=== PATIENT | female | born 1975 | race African-American/Black ===

== ENCOUNTER 2019-02-09 13:20 | Emergency (ER) | payer OTHER ==
[~2019-02-09] VITALS: Ht 160 cm; Wt 99.8 kg
[2019-02-09 13:20] VITALS: BP 172/120
[2019-02-09] MEDS ORDERED: IBUPROFEN 600 MG TABLET PO ONE ×2 (15:00→15:14)
[2019-02-09] MEDS ORDERED: ACETAMINOPHEN ES 500 MG TABLET PO ONE (15:00)
[2019-02-09] MEDS ORDERED: GUAIFENESIN/D-METHORPHAN HB 5 ML UDC PO ONE (15:00)
[2019-02-09] MEDS ORDERED: ACETAMINOPHEN ES 500 MG TABLET ONE (15:14)
[2019-02-09] MEDS ORDERED: GUAIFENESIN/D-METHORPHAN HB 5 ML UDC ONE (15:14)
--- NOTE | 2019-02-09 15:32 | NUR ---
Patient discharged to home in stable condition. Written and verbal after care instructions given. Patient verbalizes understanding of instruction.
== END 2019-02-09 15:32 | disposition home or self-care (01) ==
LOC: ER 13:22
DX: J20.9 Acute bronchitis, unspecified (principal); I10 Essential (primary) hypertension; K21.9 Gastro-esophageal reflux disease without esophagitis; Z88.6 Allergy status to analgesic agent
CPT/HCPCS: 99284; A4606

== ENCOUNTER 2019-02-17 06:37 | Emergency (ER) | payer OTHER ==
[~2019-02-17] VITALS: Ht 160 cm; Wt 99.3 kg
--- NOTE | 2019-02-17 06:49 | NUR ---
PT BIBSELF C/O ABDOMINAL PAIN X4 DAYS. ALSO C/O VOMITTING, DIARRHEA, HEMATURIA. DENIES SOB, CHEST PAIN, DYSURIA, FEVER. NOTED HYPERTENSION, MD AWARE. PT AAOX4. RESPIRATIONS EVEN AND UNLABORED. SKIN WARM AND INTACT. PLACED IN GOWN AND ON MONITOR, WILL CONTINUE TO MONITOR
--- NOTE | 2019-02-17 06:50 | NUR ---
URINE COLLECTED AND SENT TO LAB
[2019-02-17] MEDS ORDERED: ONDANSETRON HCL/PF 4 MG/2 ML VIAL IVP ONE (07:00)
[2019-02-17] MEDS ORDERED: IV NS 0.9% 1,000 ML BAG IV ONE (07:00)
[2019-02-17] MEDS ORDERED: MORPHINE SULFATE INJ 2 MG/ML DISP.SYRIN IV ONE (07:00)
--- NOTE | 2019-02-17 07:05 | NUR ---
IV INITIATED RIGHT AC 20G. LABS DRAWN FROM SITE. WELL SERVICE FLOORPERSON AT BEDSIDE FOR COLLECTION. IV INTACT AND PATENT
[2019-02-17] MEDS ORDERED: ONDANSETRON HCL/PF 4 MG/2 ML VIAL ONE ×2 (07:10→08:02)
[2019-02-17] MEDS ORDERED: MORPHINE SULFATE INJ 4 MG/ML DISP.SYRIN ONE (07:10)
[2019-02-17 07:17] LABS: BASOPHILS % (AUTO) 0.3 % (0.0-2.0); EOSINOPHILS % (AUTO) 0.6 % (0.0-6.0); HEMATOCRIT 41 % (33-45); HEMOGLOBIN 13.5 g/dL (11.5-14.8); LYMPHOCYTES # (AUTO) 0.7 /CMM (0.8-4.8); LYMPHOCYTES % (AUTO) 5.6 % (20.0-44.0); MEAN CORPUSCULAR HGB CONC 33 g/dl (31.0-36.0); MEAN CORPUSCULAR VOLUME 76 fL (82-100); MONOCYTES # (AUTO) 0.3 /CMM (0.1-1.30); MONOCYTES % (AUTO) 2.5 % (2.0-12.0); NEUTROPHILS # (AUTO) 11.8 /CMM (1.8-8.9); PLATELET COUNT (AUTO) 303 /CMM (150-450); RED BLOOD CELL COUNT(AUTO) 5.42 MIL/uL (4.0-5.2); WHITE BLOOD COUNT (AUTO) 12.9 K/uL (4.3-11.0)
[2019-02-17 07:24] LABS: CREATININE 1.1 mg/dL (0.6-1.3); POTASSIUM 3.5 mmol/L (3.5-5.1)
[2019-02-17 07:35] LABS: APPEARANCE,URINE Slightly Cloudy (CLEAR); BILIRUBIN,URINE Negative (NEGATIVE); BLOOD, URINE Large Ery/uL (NEGATIVE); KETONES,URINE Trace (NEGATIVE); LEUKOCYTE ESTERASE ,URINE Trace (NEGATIVE); NITRITE, URINE Negative (NEGATIVE); PH,URINE 6.5 (5.0-8.0); PROTEIN,URINE >=300 mg/dl (NEGATIVE); UGLUCOSE 100 MG/DL mg/dL (NEGATIVE); UROBILINOGEN,URINE 0.2 EU/dL (0.2)
[2019-02-17 07:36] LABS: ALBUMIN 3.9 g/dL (3.4-5.0); BILIRUBIN,DIRECT 0.1 mg/dL (0.0-0.2); BILIRUBIN,TOTAL 1.1 mg/dL (0.2-1.0); TOTAL PROTEIN, SERUM 8.2 g/dL (6.4-8.2)
[2019-02-17 07:36] LABS: COLOR,URINE Dark Yellow (YELLOW)
--- NOTE | 2019-02-17 07:36 | NUR ---
THERMITE WELDER AT BEDSIDE FOR XRAY.
--- NOTE | 2019-02-17 07:40 | NUR ---
REPORT RECEIVED FROM SAIDA WHITE FOR ZELDA
[2019-02-17 07:49] LABS: BACTERIA,URINE Few /HPF (None Seen)
[2019-02-17 07:55] LABS: SQUAMOUS EPITHELIAL CELL,UR Many /HPF (None Seen)
[2019-02-17 07:56] LABS: URINE AMORPHOUS URATE Few /HPF (None Seen)
[2019-02-17] MEDS ORDERED: ONDANSETRON HCL/PF - ER 4 MG/2 ML VIAL IV ONE (08:00)
[2019-02-17] MEDS ORDERED: MAG HYDROX/AL HYDROX/SIMETH 30 ML UDC PO ONE (08:00)
[2019-02-17] MEDS ORDERED: LIDOCAINE VISCOUS 2% UD 15 ML UDC MM ONE (08:00)
[2019-02-17] MEDS ORDERED: LIDOCAINE VISCOUS 2% UD 15 ML UDC ONE (08:01)
[2019-02-17] MEDS ORDERED: MAG HYDROX/AL HYDROX/SIMETH 30 ML UDC ONE (08:02)
[2019-02-17 09:55] VITALS: BP 132/81
--- NOTE | 2019-02-17 09:55 | NUR ---
IV removed. Catheter intact and site benign. Pressure and 4x4 applied to site. No bleeding noted. Patient discharged to home in stable condition. Written and verbal after care instructions given. Patient verbalizes understanding of instruction.
== END 2019-02-17 09:58 | disposition home or self-care (01) ==
LOC: ER 06:37
DX: E11.9 Type 2 diabetes mellitus without complications (principal); M54.9 Dorsalgia, unspecified; G89.29 Other chronic pain; R11.2 Nausea with vomiting, unspecified; R31.9 Hematuria, unspecified; I10 Essential (primary) hypertension; K21.9 Gastro-esophageal reflux disease without esophagitis; Z88.6 Allergy status to analgesic agent
CPT/HCPCS: 36415; 71045; 80048; 80076; 81001; 83690; 84703; 85025; 96361; 96374; 96375; 96376; 99284; J2270; J2405 ×2; J7030; 81000-TC

== ENCOUNTER 2019-06-15 18:18 | Emergency (ER) | payer OTHER ==
[~2019-06-15] VITALS: Ht 160 cm; Wt 90.7 kg
[2019-06-15 18:29] VITALS: BP 194/130
[2019-06-15 18:57] LABS: APPEARANCE,URINE Slightly Cloudy (CLEAR); BILIRUBIN,URINE Negative (NEGATIVE); BLOOD, URINE Trace-intact Ery/uL (NEGATIVE); COLOR,URINE Light yellow (YELLOW); KETONES,URINE Negative (NEGATIVE); LEUKOCYTE ESTERASE ,URINE Negative (NEGATIVE); NITRITE, URINE Negative (NEGATIVE); PROTEIN,URINE 100 mg/dl (NEGATIVE); UGLUCOSE 500 MG/DL mg/dL (NEGATIVE); UROBILINOGEN,URINE 0.2 EU/dL (0.2)
[2019-06-15 19:02] LABS: RBC,URINE 0-3 /HPF (0-2); WBC,URINE 0-2 /HPF (0-3)
[2019-06-15 19:03] LABS: BACTERIA,URINE Rare /HPF (None Seen); SQUAMOUS EPITHELIAL CELL,UR Few /HPF (None Seen)
[2019-06-15] MEDS ORDERED: KETOROLAC TROMETHAMINE INJ 60 MG/2 ML VIAL IM ONE ×2 (19:20→19:30)
--- NOTE | 2019-06-15 19:30 | NUR ---
Patient discharged to home in stable condition. Written and verbal after care instructions given. Patient verbalizes understanding of instruction.
== END 2019-06-15 19:32 | disposition home or self-care (01) ==
LOC: ER 18:20
DX: M54.5 Low back pain (principal); G89.29 Other chronic pain; B37.3 Candidiasis of vulva and vagina; I10 Essential (primary) hypertension; E11.9 Type 2 diabetes mellitus without complications; K21.9 Gastro-esophageal reflux disease without esophagitis; Z90.89 Acquired absence of other organs; Z60.2 Problems related to living alone; Z88.6 Allergy status to analgesic agent
CPT/HCPCS: 81001; 84703; 96372; 99283; J1885; 81000-TC

== ENCOUNTER 2019-07-18 17:48 | Emergency (ER) | payer OTHER, MEDICAID ==
[~2019-07-18] VITALS: Ht 160 cm; Wt 88.0 kg
--- NOTE | 2019-07-18 17:51 | NUR ---
CAME IN FOR VAGINAL BLEEDING/CRAMPS SINCE THURSDAY NIGHT. REQUESTING NORETHINDRONE 5MG C/O DIZZINESS FROM TIME OF SYMTOM ONSET, ALSO C/O URINARY FREQUENCY, FEELING ALWAYS THIRSTY, AND WEIGHT LOSS. TO ER BED 16,PATEINT EMILIE Guido NOTED, HOOKED TO MONITOR, CHANGED TO GOWN, PROVIDED W WARM BLANKET, AWAITING MD DE LA PAZ.
--- NOTE | 2019-07-18 18:03 | NUR ---
VICTOR HUGO WHITNEY AT BEDSIDE
[2019-07-18 18:27] LABS: BASOPHILS % (AUTO) 0.6 % (0.0-2.0); EOSINOPHILS % (AUTO) 1.1 % (0.0-6.0); HEMATOCRIT 42 % (33-45); HEMOGLOBIN 13.9 g/dL (11.5-14.8); LYMPHOCYTES # (AUTO) 1.8 /CMM (0.8-4.8); LYMPHOCYTES % (AUTO) 25.3 % (20.0-44.0); MEAN CORPUSCULAR HGB CONC 33 g/dl (31.0-36.0); MEAN CORPUSCULAR VOLUME 75 fL (82-100); MONOCYTES # (AUTO) 0.3 /CMM (0.1-1.30); MONOCYTES % (AUTO) 4.4 % (2.0-12.0); NEUTROPHILS % (AUTO) 68.6 % (43.0-81.0); PLATELET COUNT (AUTO) 245 /CMM (150-450); WHITE BLOOD COUNT (AUTO) 7.3 K/uL (4.3-11.0)
[2019-07-18] MEDS ORDERED: ACETAMINOPHEN ES 500 MG TABLET ONE (18:28)
[2019-07-18] MEDS: ACETAMINOPHEN 325 MG TABLET PO ONE (18:37)
[2019-07-18] MEDS: IV NS 0.9% 1,000 ML BAG IV ONE ×2 (18:37→18:43)
[2019-07-18 19:00] LABS: CALCIUM, SERUM 9.5 mg/dL (8.5-10.1); CREATININE 1.1 mg/dL (0.6-1.3); POTASSIUM 3.5 mmol/L (3.5-5.1)
[2019-07-18 19:34] LABS: BILIRUBIN,URINE Negative (NEGATIVE); BLOOD, URINE Moderate Ery/uL (NEGATIVE); COLOR,URINE Light yellow (YELLOW); KETONES,URINE Trace (NEGATIVE); LEUKOCYTE ESTERASE ,URINE Negative (NEGATIVE); NITRITE, URINE Negative (NEGATIVE); PH,URINE 5.5 (5.0-8.0); PROTEIN,URINE Negative (NEGATIVE); UGLUCOSE 500 MG/DL mg/dL (NEGATIVE); UROBILINOGEN,URINE 0.2 EU/dL (0.2)
[2019-07-18 19:35] LABS: APPEARANCE,URINE SLIGHTLY HAZY (CLEAR)
[2019-07-18 19:48] LABS: BACTERIA,URINE Few /HPF (None Seen); SQUAMOUS EPITHELIAL CELL,UR Moderate /HPF (None Seen)
[2019-07-18 19:49] LABS: WBC,URINE 0-2 /HPF (0-3)
[2019-07-18] MEDS ORDERED: POTASSIUM CHLORIDE 20 MEQ TAB.PRT.SR PO ONE (20:03)
[2019-07-18] MEDS: POTASSIUM CHLORIDE 20 MEQ TAB.PRT.SR PO ONE (20:06)
[2019-07-18] MEDS ORDERED: KETOROLAC TROMETHAMINE INJ 30 MG/ML VIAL ONE (21:12)
[2019-07-18] MEDS: KETOROLAC TROMETHAMINE INJ 30 MG/ML VIAL IV ONE (21:21)
[2019-07-18 21:34] VITALS: BP 167/89
--- NOTE | 2019-07-18 21:34 | NUR ---
Patient discharged to home in stable condition. Written and verbal after care instructions given. Patient verbalizes understanding of instruction.IV removed. Catheter intact and site benign. Pressure and 4x4 applied to site. No bleeding noted.Pt ambulatory with a steady gait
== END 2019-07-18 21:35 | disposition home or self-care (01) ==
LOC: ER 17:50
DX: E11.65 Type 2 diabetes mellitus with hyperglycemia (principal); E86.0 Dehydration; R42 Dizziness and giddiness; R35.0 Frequency of micturition; N93.8 Other specified abnormal uterine and vaginal bleeding; I10 Essential (primary) hypertension; K21.9 Gastro-esophageal reflux disease without esophagitis; G89.29 Other chronic pain; Z76.0 Encounter for issue of repeat prescription; Z90.710 Acquired absence of both cervix and uterus; Z60.2 Problems related to living alone; Z88.1 Allergy status to other antibiotic agents
CPT/HCPCS: 36415; 80048; 81001; 82010; 82962 ×3; 84702; 85025; 96361; 96374; 99283; J1885; J7030 ×2; 81000-TC

== ENCOUNTER 2019-11-07 18:43 | Emergency (ER) | payer MEDICAID, OTHER ==
[~2019-11-07] VITALS: Ht 160 cm; Wt 80.7 kg
[2019-11-07 18:51] VITALS: BP 144/100
--- NOTE | 2019-11-07 18:51 | NUR ---
PT BIB MOM C/O NECK PAIN SINCE THURSDAY, PT IS AAOX4, NOT IN RESPIRATORY DISTRESS, HOOKED TO MONITOR, KEPT RESTED AND COMFORTABLE, WILL CONTINUE TO MONITOR, AWAITING ER MD FOR EVAL.
[2019-11-07] MEDS ORDERED: IBUPROFEN 600 MG TABLET PO ONE (19:00)
--- NOTE | 2019-11-07 19:08 | NUR ---
Patient discharged to home in stable condition. Written and verbal after care instructions given. Patient verbalizes understanding of instruction.
== END 2019-11-07 19:09 | disposition home or self-care (01) ==
LOC: ER 18:45
DX: M62.830 Muscle spasm of back (principal); I10 Essential (primary) hypertension; K21.9 Gastro-esophageal reflux disease without esophagitis; E11.9 Type 2 diabetes mellitus without complications; Z98.890 Other specified postprocedural states; Z88.6 Allergy status to analgesic agent; Z60.2 Problems related to living alone

== ENCOUNTER 2019-12-08 18:33 | Emergency (ER) | payer OTHER ==
[~2019-12-08] VITALS: Ht 160 cm; Wt 79.4 kg
--- NOTE | 2019-12-08 18:46 | NUR ---
Been diagnosed w/DMsince 11/07 having Leg cramps/pain/numbness legs since. PT AWAKE, ALERT, -SOB, NAD NOTED, VSS, PENDING MD DE LA PAZ
[2019-12-08] MEDS ORDERED: oxyCODONE/APAP (5/325 MG) 1 UDTAB TABLET ONE ×2 (19:47→22:09)
[2019-12-08] MEDS ORDERED: oxyCODONE/APAP (5/325 MG) 1 UDTAB TABLET PO ONE ×2 (20:00→22:00)
[2019-12-08 20:44] LABS: BASOPHILS % (AUTO) 0.6 % (0.0-2.0); EOSINOPHILS % (AUTO) 1.3 % (0.0-6.0); HEMATOCRIT 41 % (33-45); HEMOGLOBIN 13.6 g/dL (11.5-14.8); LYMPHOCYTES # (AUTO) 1.3 /CMM (0.8-4.8); LYMPHOCYTES % (AUTO) 18.9 % (20.0-44.0); MEAN CORPUSCULAR HGB CONC 33 g/dl (31.0-36.0); MEAN CORPUSCULAR VOLUME 74 fL (82-100); MONOCYTES # (AUTO) 0.4 /CMM (0.1-1.30); MONOCYTES % (AUTO) 6.1 % (2.0-12.0); NEUTROPHILS # (AUTO) 5.2 /CMM (1.8-8.9); NEUTROPHILS % (AUTO) 73.1 % (43.0-81.0); PLATELET COUNT (AUTO) 330 /CMM (150-450); RED BLOOD CELL COUNT(AUTO) 5.55 MIL/uL (4.0-5.2); WHITE BLOOD COUNT (AUTO) 7.1 K/uL (4.3-11.0)
[2019-12-08 20:59] LABS: CALCIUM, SERUM 9.9 mg/dL (8.5-10.1); CREATININE 1.3 mg/dL (0.6-1.3); POTASSIUM 3.1 mmol/L (3.5-5.1)
[2019-12-08 21:00] VITALS: BP 139/85
[2019-12-08] MEDS ORDERED: IV NS 0.9% 1,000 ML BAG IV ONE ×2 (21:00→22:00)
--- NOTE | 2019-12-08 21:00 | NUR ---
GLUCOSE 579. ER AWARE
[2019-12-08] MEDS ORDERED: INSULIN REGULAR, HUMAN 100 UNIT/ML 10 ML VIAL ONE (21:20)
--- NOTE | 2019-12-08 21:21 | NUR ---
insulin 7u ivp given
[2019-12-08] MEDS ORDERED: INSULIN REGULAR, HUMAN 100 UNIT/ML 10 ML VIAL IV ONE ×2 (21:30→22:00)
--- NOTE | 2019-12-08 22:00 | NUR ---
INSULIN 6U IVP GIVEN
--- NOTE | 2019-12-08 22:48 | NUR ---
Patient discharged to home in stable condition. Written and verbal after care instructions given. Patient verbalizes understanding of instruction. IV removed. Catheter intact and site benign. Pressure and 4x4 applied to site. No bleeding noted.
== END 2019-12-08 22:48 | disposition home or self-care (01) ==
LOC: ER 18:34
DX: E11.40 Type 2 diabetes mellitus with diabetic neuropathy, unspecified (principal); E11.65 Type 2 diabetes mellitus with hyperglycemia; I10 Essential (primary) hypertension; K21.9 Gastro-esophageal reflux disease without esophagitis; Z98.890 Other specified postprocedural states; Z86.718 Personal history of other venous thrombosis and embolism; Z60.2 Problems related to living alone; Z88.6 Allergy status to analgesic agent
CPT/HCPCS: 36415; 80048; 82962 ×3; 85025; 96361; 96374; 96376; 99283; J1815

== ENCOUNTER 2021-09-10 05:08 | Inpatient (IN) | payer OTHER ==
[~2021-09-10] VITALS: Ht 160 cm; Wt 87.5 kg
[2021-09-10 05:57] LABS: BASOPHILS % (AUTO) 0.5 % (0.0-2.0); EOSINOPHILS % (AUTO) 1.3 % (0.0-6.0); HEMATOCRIT 35 % (33-45); HEMOGLOBIN 11.1 g/dL (11.5-14.8); LYMPHOCYTES # (AUTO) 1.5 K/uL (0.8-4.8); LYMPHOCYTES % (AUTO) 17.8 % (20.0-44.0); MEAN CORPUSCULAR HGB CONC 32 g/dl (31.0-36.0); MEAN CORPUSCULAR VOLUME 77 fL (82-100); MONOCYTES # (AUTO) 0.3 K/uL (0.1-1.30); MONOCYTES % (AUTO) 3.3 % (2.0-12.0); NEUTROPHILS # (AUTO) 6.5 K/uL (1.8-8.9); NEUTROPHILS % (AUTO) 77.1 % (43.0-81.0); PLATELET COUNT (AUTO) 298 K/uL (150-450); RED BLOOD CELL COUNT(AUTO) 4.53 MIL/uL (4.0-5.2); WHITE BLOOD COUNT (AUTO) 8.4 K/uL (4.3-11.0)
--- NOTE | 2021-09-10 06:04 | NUR ---
PATIENT CAME TO THE ER BED 7 BIBSELF C/O L CHEST PAIN SINCE 1x HOURS AGO W/ SOB. PATIENT IS USUALLY ON 2.5L HOME OXYGEN FOR PAST HX OF COVID, BUT HAS BEEN OFF HOME SUPPLEMENTAL OXYGEN FOR 1x MONTH. PAIN RADIATES FROM THE LEFT SIDE OF CHEST TO THE LOWER BACK AND RIGHT ARM. AAOx4. CONNECTED TO THE LOSS CONTROL CONSULTANT. WILL CONTINUE TO MONITOR PATIENT CLOSELY.
[2021-09-10 06:05] LABS: CREATININE 1.3 mg/dL (0.6-1.3); POTASSIUM 4.1 mmol/L (3.5-5.1)
[2021-09-10] MEDS ORDERED: KETOROLAC TROMETHAMINE 15 MG/ML VIAL ONE (06:21)
[2021-09-10] MEDS ORDERED: ONDANSETRON HCL/PF 4 MG/2 ML VIAL ONE ×2 (06:21→08:28)
[2021-09-10] MEDS ORDERED: KETOROLAC TROMETHAMINE INJ 30 MG/ML VIAL IV ONE (06:30)
[2021-09-10] MEDS ORDERED: ONDANSETRON HCL/PF - ER 4 MG/2 ML VIAL IV ONE ×2 (06:30→09:00)
[2021-09-10] MEDS ORDERED: IV NS 0.9% 2,000 ML IV ONE (06:30)
[2021-09-10] MEDS ORDERED: ASPIRIN 325 MG TABLET PO ONE (06:30)
[2021-09-10] MEDS ORDERED: ASPIRIN 325 MG TABLET ONE (06:37)
[2021-09-10] MEDS ORDERED: MORPHINE SULFATE INJ 4 MG/ML DISP.SYRIN ONE ×2 (06:41→08:43)
[2021-09-10] MEDS ORDERED: ENOXAPARIN SODIUM 80 MG/0.8 ML DISP.SYRIN SQ ONE ×2 (07:00→07:31)
[2021-09-10] MEDS ORDERED: MORPHINE SULFATE INJ 2 MG/ML DISP.SYRIN IV ONE ×2 (07:00→09:00)
--- NOTE | 2021-09-10 07:13 | NUR ---
COVID SWAB SENT TO LAB
--- NOTE | 2021-09-10 07:58 | NUR ---
PANEL ON-CALL PAGED
[2021-09-10] MEDS ORDERED: METF-440 PO (08:24)
[2021-09-10] MEDS ORDERED: PANT40TA49 PO (08:24)
[2021-09-10] MEDS ORDERED: HYDR25TA4 PO (08:24)
[2021-09-10] MEDS ORDERED: METO-357 PO (08:24)
[2021-09-10] MEDS ORDERED: MOXI3DRO13 RIGHTEYE (08:24)
[2021-09-10] MEDS ORDERED: PRED5DRO16 RIGHTEYE (08:24)
[2021-09-10] MEDS ORDERED: DIAZ2TAB3 PO (08:24)
[2021-09-10] MEDS ORDERED: ATOR10TA PO (08:24)
[2021-09-10] MEDS ORDERED: INSU100I26 SQ (08:24)
[2021-09-10] MEDS ORDERED: Magnesium 1GM/D5W 100ML PREMIX PIGGYBACK IV ONE (08:30)
[2021-09-10] MEDS ORDERED: Magnesium 1GM/D5W 100ML PREMIX 200 ML IV ONE (08:35)
[2021-09-10 08:58] LABS: ALBUMIN 3.4 g/dL (3.4-5.0); BILIRUBIN,DIRECT 0.1 mg/dL (0.0-0.2); BILIRUBIN,TOTAL 0.4 mg/dL (0.2-1.0); TOTAL PROTEIN, SERUM 6.6 g/dL (6.4-8.2)
[2021-09-10] MEDS ORDERED: ONDANSETRON HCL/PF 4 MG/2 ML VIAL IV ONE (09:00)
--- NOTE | 2021-09-10 11:06 | NUR ---
GOING TO 315.2
--- NOTE | 2021-09-10 11:20 | NUR ---
report given to Mariann WHITE for kaiden.
--- NOTE | 2021-09-10 11:57 | NUR ---
wheeled patient via gurney accompanied by RN and emt in no distress. RN assigned to patient at bedside to assume care.
[2021-09-10 12:00] VITALS: BP 139/100
[2021-09-10] MEDS ORDERED: LORAZEPAM 1 MG TABLET PO PRN (12:00)
[2021-09-10] MEDS ORDERED: MAGNESIUM HYDROXIDE 30 ML UDC PO PRN (12:00)
[2021-09-10] MEDS ORDERED: Z GUARD REMEDY 2 OZ OINT TP PRN (12:00)
[2021-09-10] MEDS ORDERED: DEXTROSE 50%-WATER 50 ML DISP.SYRIN IV PRN (12:00)
[2021-09-10] MEDS ORDERED: TEMAZEPAM 15 MG CAPSULE PO PRN (12:00)
[2021-09-10] MEDS ORDERED: MAG HYDROX/AL HYDROX/SIMETH 30 ML UDC PO PRN (12:00)
[2021-09-10] MEDS ORDERED: ACETAMINOPHEN 325 MG TABLET PO PRN (12:00)
--- NOTE | 2021-09-10 12:10 | NUR ---
VOCATIONAL PSYCHOLOGIST NOTE ADMITTED PATIENT FROM ER VIA GURNEY ACCOMPANIED BY 2 NURSES. PATIENT ABLE TO TRANSFER TO BED WITH NO DIFFICULTY. PATIENT IS AMBULATORY WITH STEADY GAIT BUT INSTRUCTED TO STAY ON THE BED UNTIL FURTHER ORDERS. PATIENT IS ALERT AND ORIENTED X 4. PATIENT ON OXYGEN AT 2LPM VIAN NASAL CANULA FOR COMFORT WITH EQUAL AND UNLABORED BREATHING. PATIENT WITH IV ACCESS ON THE RIGHT AC G 20, PATENT AND INTACT. COMFORT MEASURES PROVIDED. COMPLAINED OF SOME DISCOMFORT ON THE EPIGASTRIC AREA. COMFORT MEASURES PROVIDED. PROVIDED WITH CALM AND QUIET ENVIRONMENT. SAFETY MEASURES ENSURED WITH BED ON LOWEST AND LOCKED POSITION. CALL LIGHT WITHIN REACH AT ALL TIMES. ENCOURAGED TO DO DEEP BREATHIGN EXERCISES. NOT IN DISTRESS. WILL CONTINUE TO MONITOR PATIENT.
[2021-09-10] MEDS: ONDANSETRON HCL/PF 4 MG/2 ML VIAL IVP PRN ×2 (12:26→21:16)
[2021-09-10] MEDS: MORPHINE SULFATE INJ 2 MG/ML DISP.SYRIN IV PRN ×3 (12:36→22:52)
[2021-09-10] MEDS: CIPROFLOXACIN HCL 0.3% 5 ML BOTTLE RIGHTEYE SCH ×2 (13:00→18:47)
[2021-09-10] MEDS: prednisoLONE ACET 1% OPHT DROP 5 ML BOTTLE RIGHTEYE SCH ×3 (13:00→20:53)
[2021-09-10] MEDS: BLOOD SUGAR DIAGNOSTIC 1 EACH STRIP IN SCH ×3 (14:00→22:15)
--- NOTE | 2021-09-10 14:39 | NUR ---
IRON POURER NOTE PATIENT SEEN BY DR. CURRY WITH MD ORDER FOR NM HIDA SCAN AND CTCA TOMORROW. PATIENT VERBALIZED UNDERSTANDING. CONSENT SIGNED AND ATTACHED TO CHART. WILL KEEP PATIENT ON NPO FOR HIDA SCAN TODAY. WILL CONTINUE TO MONITOR PATIENT.
[2021-09-10 16:00] VITALS: BP 139/81
--- NOTE | 2021-09-10 16:35 | NUR ---
EXTRACTOR OPERATOR HELPER NOTE PATIENT PICKED UP FOR HIDA SCAN VIA WHEELCHAIR. IN STABLE CONDITION.
[2021-09-10] MEDS ORDERED: ATORVASTATIN 10 MG TABLET PO SCH (18:00)
--- NOTE | 2021-09-10 18:30 | NUR ---
OIL BURNER INSTALLER NOTE PATIENT BACK FROM HIDA SCAN IN STABLE CONDITION. REFUSED BLOOD SUGAR CHECK SHE IS HUNGRY. DUE MEDS GIVEN. PATIENT ALSO SAID SHE HAVE PAIN ON EPIGASTRIC AREA AND ASKED FOR PAIN MEDICATION. WILL CONTINUE TO MONITOR PATIENT.
--- NOTE | 2021-09-10 19:00 | NUR ---
TIRE CLASSIFIER NOTE PATIENT IS ALERT AND ORIENTED X 4. PATIENT ON OXYGEN AT 2LPM VIA NASAL CANULA FOR COMFORT WITH EQUAL AND UNLABORED BREATHING. PATIENT WITH IV ACCESS ON THE RIGHT AC G 20, PATENT AND INTACT. COMFORT MEASURES PROVIDED. COMPLAINED OF SOME DISCOMFORT ON THE EPIGASTRIC AREA, MORPHINE GIVEN INDICATED. COMFORT MEASURES PROVIDED. PROVIDED WITH CALM AND QUIET ENVIRONMENT. HIDA SCAN DONE AND WILL WAIT FOR RESULT. STILL FOR CTA TOMORROW ORDERED. IN STABLE CONDITION. SAFETY MEASURES ENSURED WITH BED ON LOWEST AND LOCKED POSITION. CALL LIGHT WITHIN REACH AT ALL TIMES. ENCOURAGED TO DO DEEP BREATHING EXERCISES. NOT IN DISTRESS. WILL ENDORSE PATIENT FOR CONTINUITY OF CARE.
--- NOTE | 2021-09-10 19:20 | NUR ---
TELE/RN OPENING NOTE RECEIVED PATIENT RESTING IN BED. AWAKE, ALERT AND ORIENTED X 4. ABLE TO MAKE NEEDS KNOWN. DENIES PAIN AT THIS TIME. CONTINUES ON ROOM AIR WITH NO S/SX OF RESPIRATORY DISTRESS NOTED. IV ACCESS TO RIGHT AC #20G INTACT, PATENT AND SALINE LOCKED. CONTINUES ON TELE MONITOR WITH CURRENT READING SR HR 95. CALL LIGHT WITHIN REACH. ASPIRATION, FALL AND SAFETY PRECAUTIONS MAINTAINED. WILL CONTINUE TO MONITOR.
[2021-09-10] MEDS: ENOXAPARIN SODIUM 80 MG/0.8 ML DISP.SYRIN SQ SCH (20:54)
[2021-09-10 20:58] VITALS: BP 133/94
[2021-09-10] MEDS: HYDROCODONE/APAP 5/325MG TABLET PO PRN (21:15)
[2021-09-10] MEDS: INSULIN REGULAR, HUMAN 100 UNIT/ML 3 ML VIAL SQ PRN (22:36)
[2021-09-10] MEDS: GUAIFENESIN/CODEINE 10 ML UDC PO PRN (22:52)
[2021-09-11] VITALS: BP 126/89
[2021-09-11] MEDS: MORPHINE SULFATE INJ 2 MG/ML DISP.SYRIN IV PRN ×5 (02:54→19:39)
[2021-09-11] MEDS: ONDANSETRON HCL/PF 4 MG/2 ML VIAL IVP PRN ×3 (04:28→20:07)
[2021-09-11 06:25] LABS: BASOPHILS % (AUTO) 0.6 % (0.0-2.0); EOSINOPHILS % (AUTO) 0.8 % (0.0-6.0); HEMATOCRIT 32 % (33-45); HEMOGLOBIN 10.4 g/dL (11.5-14.8); LYMPHOCYTES # (AUTO) 2.4 K/uL (0.8-4.8); LYMPHOCYTES % (AUTO) 30.6 % (20.0-44.0); MEAN CORPUSCULAR HGB CONC 33 g/dl (31.0-36.0); MEAN CORPUSCULAR VOLUME 75 fL (82-100); MONOCYTES # (AUTO) 0.4 K/uL (0.1-1.30); MONOCYTES % (AUTO) 5.3 % (2.0-12.0); NEUTROPHILS % (AUTO) 62.7 % (43.0-81.0); PLATELET COUNT (AUTO) 247 K/uL (150-450); RED BLOOD CELL COUNT(AUTO) 4.26 MIL/uL (4.0-5.2)
--- NOTE | 2021-09-11 06:35 | NUR ---
TELE/RN CLOSING NOTE PATIENT CURRENTLY SLEEPING IN BED. ALERT AND ORIENTED X 4. ABLE TO MAKE NEEDS KNOWN. DENIES PAIN AT THIS TIME. CONTINUES ON ROOM AIR WITH NO S/SX OF RESPIRATORY DISTRESS NOTED. IV ACCESS TO RIGHT AC #20G INTACT, PATENT AND SALINE LOCKED. CONTINUES ON NPO STATUS FOR CTCA THIS AM. CONSENT IN CHART. PATIENT IS AMBULATORY WITH STEADY GAIT. CALL LIGHT WITHIN REACH. ASPIRATION, FALL AND SAFETY PRECAUTIONS MAINTAINED. WILL ENDORSE PLAN OF CARE TO ONCOMING SHIFT. Addendum: 09/11/21 at 0648 by VANE LI RN CONTINUES ON TELE MONITOR WITH CURRENT READING SR HR 100.
[2021-09-11] MEDS: BLOOD SUGAR DIAGNOSTIC 1 EACH STRIP IN SCH ×4 (06:52→22:07)
--- NOTE | 2021-09-11 07:01 | NUR ---
TELE/RN NOTE BLOOD GLUCOSE LEVEL THIS AM IS 157. HOLDING INSULIN SS D/T NPO STATUS FOR PROCEDURE TODAY.
[2021-09-11 07:14] LABS: THYROID STIMULATING HORMONE 10.123 uIU/mL (0.358-3.74)
--- NOTE | 2021-09-11 07:30 | NUR ---
tele/rn opening notes received patient awake alert and oriented x4. patient is on room air. patient in no apparent respiratory distress noted. tele monitor sinus tachy 111 bpm. no complained of pain at this time. will continue to monitor.
[2021-09-11 08:00] VITALS: BP 128/87
[2021-09-11 08:23] LABS: ALBUMIN 3.6 g/dL (3.4-5.0); BILIRUBIN,TOTAL 0.5 mg/dL (0.2-1.0); MAGNESIUM 2.2 mg/dL (1.8-2.4); PHOSPHORUS 4.6 mg/dL (2.5-4.9); POTASSIUM 3.2 mmol/L (3.5-5.1)
[2021-09-11] MEDS: METOPROLOL SUCCINATE 50 MG TAB.SR.24H PO SCH (08:38)
[2021-09-11] MEDS: HYDROCHLOROTHIAZIDE 25 MG TABLET PO SCH (08:39)
[2021-09-11] MEDS: PANTOPRAZOLE 40 MG TABLET.DR PO SCH (08:42)
[2021-09-11] MEDS: ENOXAPARIN SODIUM 80 MG/0.8 ML DISP.SYRIN SQ SCH ×2 (08:46→20:25)
[2021-09-11 09:28] LABS: TOTAL PROTEIN, SERUM 7.1 g/dL (6.4-8.2)
[2021-09-11] MEDS: prednisoLONE ACET 1% OPHT DROP 5 ML BOTTLE RIGHTEYE SCH ×4 (09:59→20:24)
[2021-09-11] MEDS: CIPROFLOXACIN HCL 0.3% 5 ML BOTTLE RIGHTEYE SCH ×3 (09:59→17:39)
[2021-09-11 11:59] VITALS: BP 110/72
[2021-09-11] MEDS: INSULIN REGULAR, HUMAN 100 UNIT/ML 3 ML VIAL SQ PRN ×2 (12:18→17:48)
[2021-09-11] MEDS ORDERED: CT SWABBABLE VALVE TRANS SET 1 EA INFUS.SET MC ONE (13:02)
[2021-09-11] MEDS ORDERED: IOHEXOL-350 100 ML VIAL IV ONE (13:02)
[2021-09-11] MEDS ORDERED: NITROGLYCERIN 0.4 MG/TAB BOTTLE ONE (13:02)
[2021-09-11] MEDS ORDERED: IV NS 0.9% 250 ML IV ONE (13:02)
[2021-09-11] MEDS ORDERED: METOPROLOL TARTRATE INJ 5 MG/5 ML AMPUL ONE ×2 (13:03→13:39)
[2021-09-11] MEDS: METOPROLOL TARTRATE INJ 5 MG/5 ML AMPUL IVP PRN ×9 (13:20→14:00)
--- NOTE | 2021-09-11 13:20 | NUR ---
TELE/RN NOTES PATIENT IS OUT IN THE UNIT FLOWER MACHINE OPERATOR BY FANNY CREDIT MANAGER FOR CTCA PROCEDURE.
[2021-09-11] MEDS ORDERED: NITROGLYCERIN 0.4 MG/TAB BOTTLE SL ONE (13:30)
--- NOTE | 2021-09-11 14:24 | NUR ---
TELE/RN NOTES PATIENT CAME BACK IN THE UNIT.
[2021-09-11 16:00] VITALS: BP 129/80
[2021-09-11] MEDS ORDERED: POTASSIUM CHLORIDE 20 MEQ TAB.PRT.SR PO ONE (17:00)
[2021-09-11] MEDS: HYDROCODONE/APAP 5/325MG TABLET PO PRN (17:47)
--- NOTE | 2021-09-11 19:26 | NUR ---
TELE/RN CLOSING NOTES PATIENT IS ON BED AWAKE ALERT AND ORIENTED X4. PATIENT IS ON ROOM AIR. PATIENT IN NO APPARENT RESPIRATORY DISTRESS NOTED. NO COMPLAINED OF PAIN NOTED AT THIS TIME. SEEN AND EXAMINED BY MD WITH ORDERS MADE AND CARRIED OUT. ALL DUE MEDICATIONS WAS GIVEN. TELE MONITOR READING SINUS RHYTHM 82 BPM. IV ACCESS AT LEFT FOREARM #20G PATENT AND INTACT. SAFETY PRECAUTIONS WAS IN PLACED. BED IN LOWEST POSITION AND LOCKED. SIDERAILS UP X2. CALL LIGHT WITHIN REACH. WILL ENDORSED TO RADIO ADJUSTER FOR ZELDA.
[2021-09-11 20:00] VITALS: BP 118/75
[2021-09-12 00:07] VITALS: BP 122/93
[2021-09-12] MEDS: MORPHINE SULFATE INJ 2 MG/ML DISP.SYRIN IV PRN ×5 (00:13→20:21)
[2021-09-12] MEDS: INSULIN REGULAR, HUMAN 100 UNIT/ML 3 ML VIAL SQ PRN ×5 (00:33→21:50)
[2021-09-12 04:00] VITALS: BP 126/89
[2021-09-12] MEDS: BLOOD SUGAR DIAGNOSTIC 1 EACH STRIP IN SCH ×4 (06:04→21:21)
[2021-09-12] MEDS: ONDANSETRON HCL/PF 4 MG/2 ML VIAL IVP PRN ×2 (06:14→16:13)
--- NOTE | 2021-09-12 06:38 | NUR ---
PROFILE SAW SETUP OPERATOR NOTES AWAKE & RESPONSIVE. NOT IN ANY DISTRESS. NO SOB NOTED. DENIES ANY PAIN OR DISCOMFORT AT THIS TIME. ON TELE SR @ 91 WITH IV-HL PATENT & INTACT. PT HAD HUGE BM TODAY. MONITORED ACCORDINGLY. CALL LIGHT WITHIN REACH. BED IN LOWEST POSITION. SR UP X 2 FOR SAFETY. WILL ENDORSE TO NEXT SHIFT.
[2021-09-12 07:29] LABS: BASOPHILS % (AUTO) 0.6 % (0.0-2.0); EOSINOPHILS % (AUTO) 3.4 % (0.0-6.0); HEMATOCRIT 34 % (33-45); HEMOGLOBIN 10.8 g/dL (11.5-14.8); LYMPHOCYTES # (AUTO) 2.2 K/uL (0.8-4.8); MEAN CORPUSCULAR HGB CONC 32 g/dl (31.0-36.0); MEAN CORPUSCULAR VOLUME 77 fL (82-100); MONOCYTES # (AUTO) 0.5 K/uL (0.1-1.30); MONOCYTES % (AUTO) 5.7 % (2.0-12.0); NEUTROPHILS # (AUTO) 5.1 K/uL (1.8-8.9); NEUTROPHILS % (AUTO) 63.3 % (43.0-81.0); PLATELET COUNT (AUTO) 317 K/uL (150-450); RED BLOOD CELL COUNT(AUTO) 4.45 MIL/uL (4.0-5.2); WHITE BLOOD COUNT (AUTO) 8.1 K/uL (4.3-11.0)
[2021-09-12 08:00] VITALS: BP 126/89
--- NOTE | 2021-09-12 08:09 | NUR ---
PERSONALIZED LIVING ASSISTANT OPENING NOTES RECEIVED PATIENT AWAKE & RESPONSIVE. A/O X 4. O2 AT 2LPM VIA NC PRN. NO S/S OF DISTRESS NOTED. DENIES ANY PAIN OR DISCOMFORT AT THIS TIME. ON TELE SR @ 96. IV ACCESS ON LFA #20 HL INTACT AND PATENT. SAFETY MEASURES IN PLACE: BED IN LOWEST POSITION, SIDERAILS UP X 2, CALL LIGHT WITHIN REACH. WILL CONTINUE TO MONITOR PATIENT.
[2021-09-12 08:11] LABS: CALCIUM, SERUM 8.2 mg/dL (8.5-10.1); CREATININE 1.1 mg/dL (0.6-1.3)
[2021-09-12] MEDS: PANTOPRAZOLE 40 MG TABLET.DR PO SCH (08:15)
[2021-09-12] MEDS: METOPROLOL SUCCINATE 50 MG TAB.SR.24H PO SCH (08:19)
[2021-09-12] MEDS: HYDROCHLOROTHIAZIDE 25 MG TABLET PO SCH (08:19)
[2021-09-12] MEDS: ENOXAPARIN SODIUM 80 MG/0.8 ML DISP.SYRIN SQ SCH (08:20)
[2021-09-12] MEDS: CIPROFLOXACIN HCL 0.3% 5 ML BOTTLE RIGHTEYE SCH ×3 (08:23→16:14)
[2021-09-12] MEDS: prednisoLONE ACET 1% OPHT DROP 5 ML BOTTLE RIGHTEYE SCH ×4 (08:23→20:21)
[2021-09-12] MEDS: VALSARTAN 80 MG TABLET PO SCH (08:43)
[2021-09-12] MEDS: FUROSEMIDE 40 MG TABLET PO SCH (08:43)
[2021-09-12] MEDS: SPIRONOLACTONE 25 MG TABLET PO SCH (08:43)
[2021-09-12 12:00] VITALS: BP 111/57
[2021-09-12 16:00] VITALS: BP 134/91
--- NOTE | 2021-09-12 18:20 | NUR ---
CLOTH CLASSER CLOSING NOTES PATIENT AWAKE & RESPONSIVE. A/O X 4. O2 AT 2LPM VIA NC PRN. NO SOB AND NO S/S OF DISTRESS NOTED. DENIES ANY PAIN AT THIS TIME. ON TELE MONITOR SHOWING SR @ 87 BPM. IV ACCESS ON LFA #20 HL INTACT AND PATENT, FLUSHING WELL. SAFETY MEASURES IN PLACE: BED IN LOWEST POSITION, SIDERAILS UP X 2, CALL LIGHT WITHIN REACH. WILL ENDORSE TO CUSTOMER SOLUTIONS COORDINATOR NURSE FOR ZELDA
[2021-09-12 20:00] VITALS: BP 124/96
[2021-09-13] VITALS: BP 139/98
[2021-09-13] MEDS: MORPHINE SULFATE INJ 2 MG/ML DISP.SYRIN IV PRN ×4 (00:12→13:01)
[2021-09-13 04:00] VITALS: BP 137/100
[2021-09-13] MEDS: GUAIFENESIN/CODEINE 10 ML UDC PO PRN (04:42)
[2021-09-13] MEDS: ONDANSETRON HCL/PF 4 MG/2 ML VIAL IVP PRN ×2 (04:53→09:27)
[2021-09-13] MEDS: BLOOD SUGAR DIAGNOSTIC 1 EACH STRIP IN SCH ×2 (06:35→11:28)
--- NOTE | 2021-09-13 06:37 | NUR ---
SPORTSPERSONS NOTES AWAKE & RESPONSIVE. NOT IN ANY DISTRESS. NO SOB NOTED. DENIES ANY PAIN OR DISCOMFORT AT THIS TIME. ON TELE SR @ 84 WITH IV-HL PATENT & INTACT. MONITORED ACCORDINGLY. CALL LIGHT WITHIN REACH. BED IN LOWEST POSITION. SR UP X 2 FOR SAFETY. WILL ENDORSE TO NEXT SHIFT.
[2021-09-13 07:17] LABS: BASOPHILS # (AUTO) 0.1 K/uL (0.0-0.2); BASOPHILS % (AUTO) 0.7 % (0.0-2.0); EOSINOPHILS % (AUTO) 3.2 % (0.0-6.0); HEMATOCRIT 31 % (33-45); HEMOGLOBIN 10.3 g/dL (11.5-14.8); LYMPHOCYTES # (AUTO) 2.1 K/uL (0.8-4.8); LYMPHOCYTES % (AUTO) 22.6 % (20.0-44.0); MEAN CORPUSCULAR HGB CONC 33 g/dl (31.0-36.0); MEAN CORPUSCULAR VOLUME 77 fL (82-100); MONOCYTES # (AUTO) 0.6 K/uL (0.1-1.30); MONOCYTES % (AUTO) 5.9 % (2.0-12.0); NEUTROPHILS # (AUTO) 6.3 K/uL (1.8-8.9); NEUTROPHILS % (AUTO) 67.6 % (43.0-81.0); PLATELET COUNT (AUTO) 248 K/uL (150-450); RED BLOOD CELL COUNT(AUTO) 4.09 MIL/uL (4.0-5.2); WHITE BLOOD COUNT (AUTO) 9.4 K/uL (4.3-11.0)
[2021-09-13 07:29] LABS: CALCIUM, SERUM 8.2 mg/dL (8.5-10.1); POTASSIUM 3.6 mmol/L (3.5-5.1)
--- NOTE | 2021-09-13 07:33 | NUR ---
RN OPENING NOTES Patient seen comfortably lying in bed, no SOB, no apparent distress noted, breathing even and unlabored, denies any pain or discomfort at this time. Call light left within reach, safety precautions in place, brakes locked, side rails up X 2, will monitor closely for any changes.
[2021-09-13] MEDS ORDERED: FURO40TA5 PO (07:42)
[2021-09-13] MEDS ORDERED: Valsartan 80MG PO (07:42)
[2021-09-13] MEDS ORDERED: SPIR25TA6 PO (07:42)
[2021-09-13 08:00] VITALS: BP 117/103
[2021-09-13] MEDS: FUROSEMIDE 40 MG TABLET PO SCH (08:51)
[2021-09-13] MEDS: VALSARTAN 80 MG TABLET PO SCH (08:51)
[2021-09-13] MEDS: PANTOPRAZOLE 40 MG TABLET.DR PO SCH (08:51)
[2021-09-13] MEDS: SPIRONOLACTONE 25 MG TABLET PO SCH (08:51)
[2021-09-13 08:59] VITALS: BP 117/103
[2021-09-13] MEDS: METOPROLOL SUCCINATE 50 MG TAB.SR.24H PO SCH (08:59)
[2021-09-13] MEDS: CIPROFLOXACIN HCL 0.3% 5 ML BOTTLE RIGHTEYE SCH ×2 (08:59→12:02)
[2021-09-13] MEDS: INSULIN REGULAR, HUMAN 100 UNIT/ML 3 ML VIAL SQ PRN (11:31)
[2021-09-13] MEDS: prednisoLONE ACET 1% OPHT DROP 5 ML BOTTLE RIGHTEYE SCH (12:19)
--- NOTE | 2021-09-13 13:16 | NUR ---
Patient to be discharged home today, no apparent distress noted, pain medication given as needed per MD order when non pharmacological measures ineffective. Patient made aware of the situation, she signed all discharge paperwork, all belongings taken, inventory list signed by patient. Patient discharged with life vest machine, no malfunction of machine noted at this time, patient denies dizziness, no headache, no palpitations. Health teaching provided regarding diet, medications and life vest, verbalized understanding and gratitude. List of medications with MDs name, ARMOND number and MDs office number faxed to [facility] pharmacy #[id number] Address: [id number] [place] [address]. [place] [address], spoke to [place] to verify that they received the documents (phone no. [phone]; fax no. [phone], patient made aware of the situation. Skin assessment done prior to discharge and skin is intact, warm to touch, no pallor or cyanosis noted. Peripheral IV removed and covered with dry dressing. Name wristband removed prior to discharge. Patient left unit at 1316pm, stable condition, surgical facial mask provided to patient, exit care folder with discharge paperworks handed to patient. RN assisted patient via wheelchair going to the hospital parking lot, left via private car with sister.
== END 2021-09-13 13:22 | disposition home or self-care (01) | DRG 194 ==
LOC: ER 05:12 → TELE 11:29 → MED 11:49 → TELE 11:50
PROVIDERS: ADMIT Nurse Practitioner Acute Care; ATTEND Family Medicine
DX: I11.0 Hypertensive heart disease with heart failure (principal); I21.A1 Myocardial infarction type 2; E11.36 Type 2 diabetes mellitus with diabetic cataract; I50.21 Acute systolic (congestive) heart failure; E78.5 Hyperlipidemia, unspecified; E11.65 Type 2 diabetes mellitus with hyperglycemia; K21.9 Gastro-esophageal reflux disease without esophagitis; Z20.822 Contact with and (suspected) exposure to COVID-19; Z86.16 Personal history of COVID-19; Z90.721 Acquired absence of ovaries, unilateral; Z88.8 Allergy status to other drugs, medicaments and biological substances; E66.9 Obesity, unspecified; Z79.4 Long term (current) use of insulin; Z68.34 Body mass index [BMI] 34.0-34.9, adult; R79.89 Other specified abnormal findings of blood chemistry
CPT/HCPCS: 36415; 71045-TC; 74246-TC; 75574; 76705-TC; 78226; 80048-TC; 80053-TC; 80061-TC; 80076-TC; 82962-TC; 83690-TC; 83735-TC; 83880; 84100-TC; 84443-TC; 84484-TC; 84703-TC; 85025-TC; 87081-TC; 93307-TC; A9537; C9803; G0378; J1650; J1815; J1885; J2270; J2405; J3475; J3490; J7030; J7050; Q9967

== ENCOUNTER 2021-10-20 00:41 | Inpatient (IN) | payer OTHER ==
[~2021-10-20] VITALS: Ht 160 cm; Wt 84.2 kg
[~2021-10-20 00:41] MED LIST: DIAZ2TAB3 PO; FURO40TA5 PO; HYDR25TA4 PO; INSU100I26 SQ; METF-440 PO; METO-357 PO; MOXI3DRO13 RIGHTEYE; PANT40TA49 PO; PRED5DRO16 RIGHTEYE; SPIR25TA6 PO; Valsartan 80MG PO
--- NOTE | 2021-10-20 01:10 | NUR ---
PATIENT BIB SELF C/O MIDSTERNAL CHEST PAIN FOR THE PAST 2 DAYS RADIATING TO LEFT ARM GOT WORST IN THE PAST HR GENERAL LABORER. PATIENT IS A/O X 4, RR EVEN AND LABORED, NO SOB NOTED. PATIENT CONNECTED TO CHIPPER FEEDER AND POX.
[2021-10-20] MEDS ORDERED: NITROGLYCERIN 0.4 MG/TAB BOTTLE ONE (01:23)
[2021-10-20] MEDS ORDERED: ASPIRIN 325 MG TABLET ONE (01:23)
[2021-10-20] MEDS ORDERED: NITROGLYCERIN 0.4 MG/TAB BOTTLE SL ONE (01:30)
[2021-10-20] MEDS ORDERED: ASPIRIN 325 MG TABLET PO ONE (01:30)
[2021-10-20 01:34] LABS: BASOPHILS # (AUTO) 0.1 K/uL (0.0-0.2); BASOPHILS % (AUTO) 0.7 % (0.0-2.0); EOSINOPHILS % (AUTO) 1.3 % (0.0-6.0); HEMATOCRIT 36 % (33-45); HEMOGLOBIN 11.4 g/dL (11.5-14.8); LYMPHOCYTES # (AUTO) 1.5 K/uL (0.8-4.8); LYMPHOCYTES % (AUTO) 15.9 % (20.0-44.0); MEAN CORPUSCULAR HGB CONC 32 g/dl (31.0-36.0); MEAN CORPUSCULAR VOLUME 75 fL (82-100); MONOCYTES # (AUTO) 0.4 K/uL (0.1-1.30); MONOCYTES % (AUTO) 3.8 % (2.0-12.0); NEUTROPHILS # (AUTO) 7.4 K/uL (1.8-8.9); NEUTROPHILS % (AUTO) 78.3 % (43.0-81.0); PLATELET COUNT (AUTO) 280 K/uL (150-450); RED BLOOD CELL COUNT(AUTO) 4.82 MIL/uL (4.0-5.2); WHITE BLOOD COUNT (AUTO) 9.5 K/uL (4.3-11.0)
[2021-10-20 01:41] LABS: CALCIUM, SERUM 8.3 mg/dL (8.5-10.1); CREATININE 1.3 mg/dL (0.6-1.3); POTASSIUM 3.3 mmol/L (3.5-5.1)
[2021-10-20] MEDS ORDERED: IOHEXOL-350 100 ML VIAL IV ONE (01:44)
--- NOTE | 2021-10-20 01:45 | NUR ---
URINE COLLECTED AND SENT TO LAB
--- NOTE | 2021-10-20 01:56 | NUR ---
PATIENT TAKEN TO CT
[2021-10-20] MEDS ORDERED: LORAZEPAM 0.5 MG TABLET ONE (02:29)
[2021-10-20] MEDS ORDERED: LORAZEPAM INJ 2 MG/ML VIAL IV ONE (02:30)
[2021-10-20 02:43] LABS: ALBUMIN 3.3 g/dL (3.4-5.0); BILIRUBIN,DIRECT 0.1 mg/dL (0.0-0.2); BILIRUBIN,TOTAL 0.4 mg/dL (0.2-1.0); TOTAL PROTEIN, SERUM 6.7 g/dL (6.4-8.2)
--- NOTE | 2021-10-20 02:44 | NUR ---
MRSA SWAB COLLECTED AND SENT TO LAB. PATIENT'S BELONGINGS LIST DONE.
[2021-10-20] MEDS ORDERED: LORAZEPAM 0.5 MG TABLET PO ONE (03:00)
[2021-10-20] MEDS ORDERED: KETOROLAC TROMETHAMINE INJ 30 MG/ML VIAL IV ONE (03:30)
[2021-10-20] MEDS ORDERED: FUROSEMIDE 40 MG/4 ML VIAL IV ONE (03:30)
[2021-10-20] MEDS ORDERED: FUROSEMIDE 40 MG/4 ML VIAL ONE ×2 (03:48→06:59)
[2021-10-20] MEDS ORDERED: KETOROLAC TROMETHAMINE INJ 30 MG/ML VIAL ONE (03:49)
[2021-10-20] MEDS ORDERED: DEXTROSE 50%-WATER 50 ML DISP.SYRIN IV PRN (04:30)
[2021-10-20] MEDS ORDERED: DIAZEPAM 2 MG TABLET PO PRN (04:30)
[2021-10-20] MEDS ORDERED: MAG HYDROX/AL HYDROX/SIMETH 30 ML UDC PO PRN (04:30)
[2021-10-20] MEDS ORDERED: ACETAMINOPHEN 325 MG TABLET PO PRN (04:30)
[2021-10-20] MEDS ORDERED: Z GUARD REMEDY 2 OZ OINT TP PRN (04:30)
--- NOTE | 2021-10-20 05:00 | NUR ---
PATIENT VSS, PT AMBULATED TO RESTROOM AND BACK TO BED. PT CONNECTED TO MONITORS.
[2021-10-20] MEDS: FUROSEMIDE 40 MG/4 ML VIAL IV SCH ×4 (06:00→23:53)
--- NOTE | 2021-10-20 07:15 | NUR ---
PATIENT IN BED, AWAKE. HOOKED TO SEMI AUTOMATIC SEWING MACHINE OPERATOR,NOTED SINUS TACHYCARDIA. 6/10 MIDSTERNAL CHES PAIN, RADIATING TO LEFT SIDE. WILL CONTINUE TO MONITOR. KEPT SAFE AND COMFORTABLE.
[2021-10-20] MEDS: BLOOD SUGAR DIAGNOSTIC 1 EACH STRIP IN SCH ×4 (07:30→22:11)
[2021-10-20] MEDS ORDERED: PANTOPRAZOLE 40 MG TABLET.DR PO SCH (07:30)
[2021-10-20] MEDS: PANTOPRAZOLE 40 MG TABLET.DR PO SCH (07:30)
--- NOTE | 2021-10-20 07:42 | NUR ---
PATIENT PROVIDED W BREAKFAST. TOLERATING PO WELL.
--- NOTE | 2021-10-20 07:58 | NUR ---
PATIENT ASSISTED TO RESTROOM. AMBULATED WELL.
[2021-10-20] MEDS: HYDROCODONE/APAP 5/325MG TABLET PO PRN (08:00)
[2021-10-20] MEDS ORDERED: HYDROCODONE/APAP 5/325MG TABLET ONE (08:02)
[2021-10-20] MEDS: METFORMIN 500 MG TABLET PO SCH ×3 (09:00→17:00)
[2021-10-20] MEDS ORDERED: POTASSIUM CHLORIDE 20 MEQ TAB.PRT.SR PO SCH (09:00)
--- NOTE | 2021-10-20 09:28 | NUR ---
BED 322-1
--- NOTE | 2021-10-20 09:54 | NUR ---
REPORT GIVEN TO CODI WHITE OF TELE UNIT
--- NOTE | 2021-10-20 10:50 | NUR ---
TELE/RN RECEIVING NOTES RECEIVED PATIENT A [place]ER [place]. PATIENT IS ALERT AND ORIENTED X4, ABLE TO MAKE NEEDS KNOWN. ON OXYGEN AT 2 LPM VIA NASAL CANNULA. SKIN IS INTACT. PATIENT IS AMBULATORY AND BRP/ IV ACCESS ON RIGHT AC #18G IS INTACT AND PATENT ON SALINE LOCK. NO DISCOMFORTS REPORTED AT THIS TIME. TELEMONITOR IN PLACED WITH A READING OF ST 110 BPM. ORIENTED PATIENT TO THE UNIT, ABLE TO VERBALIZED UNDERSTANDING. EDUCATED PATIENT RE: CHF, ABLE TO VERBALIZED UNDERSTANDING. SAFETY PRECAUTIONS IN PLACED; BED LOCKED ON LOWEST POSITION, HOB ELEVATED, SIDE RAILS UPX2, CALL LIGHT WITHIN REACH. WILL CONTINUE TO MONITOR PATIENT.
[2021-10-20 12:00] VITALS: BP 145/105
[2021-10-20] MEDS: SPIRONOLACTONE 25 MG TABLET PO SCH (12:04)
[2021-10-20] MEDS: VALSARTAN 80 MG TABLET PO SCH (12:05)
[2021-10-20] MEDS: ASPIRIN EC 81 MG TABLET.DR PO SCH (12:05)
--- NOTE | 2021-10-20 12:05 | NUR ---
TELE/RN NOTES- CHEST PAIN PATIENT IS HAVING PAIN ON THE CHEST THAT RADIATES TO THE BACK. ALSO COMPLAINS OF SOB. INCREASED OXYGEN TO 4 LPM, O2 SAT AT 99%. WILL ADMINISTER MORPHINE ORDERED AND WILL MONITOR PATIENT.
[2021-10-20] MEDS: METOPROLOL SUCCINATE 50 MG TAB.SR.24H PO SCH (12:06)
[2021-10-20] MEDS: ENOXAPARIN SODIUM 40 MG/0.4 ML DISP.SYRIN SQ SCH (12:06)
[2021-10-20] MEDS: MORPHINE SULFATE INJ 2 MG/ML DISP.SYRIN IV PRN ×2 (12:07→13:16)
--- NOTE | 2021-10-20 12:20 | NUR ---
TELE/RN NOTES- FOLLOW UP PATIENT SAID NO SOB NOW. WILL MONITOR.
--- NOTE | 2021-10-20 12:45 | NUR ---
TELE/RN NOTES- REFUSED INSULIN ACCUCHECK READING IS 191, PATIENT ALREADY FINISHED HER LUNCH MEAL. PATIENT REFUSED 3 UNITS INSULIN COVERAGE PER SLIDING SCALE. WILL CONTINUE TO MONITOR.
[2021-10-20] MEDS ORDERED: BUMETANIDE INJ 4 MG in IV NS 0.9% 24 ML IV ONE (14:00)
[2021-10-20 16:00] VITALS: BP 133/95
--- NOTE | 2021-10-20 16:02 | NUR ---
DIRECTOR OF WEB MARKETING NOTES- CASE CONSULTANT Pt REFUSED METFORMIN
[2021-10-20] MEDS: INSULIN REGULAR, HUMAN 100 UNIT/ML 3 ML VIAL SQ PRN ×2 (17:34→22:17)
[2021-10-20] MEDS: MORPHINE SULFATE INJ 4 MG/ML DISP.SYRIN IV PRN ×2 (17:44→22:01)
[2021-10-20] MEDS: ONDANSETRON HCL/PF 4 MG/2 ML VIAL IVP PRN (18:44)
--- NOTE | 2021-10-20 19:34 | NUR ---
CUT ORDER HAND OPENING NOTES RECEIVED PT SITTING IN BED, AWAKE. AOx4. ABLE TO MAKE NEEDS KNOWN. ON 4 L/MIN VIA NASAL CANNULA AND TOLERATING WELL. NO SOB NOTED. NO S/SX OF RESPIRATORY DISTRESS NOTED. TELE MONITOR DETECTS SINUS RHYTHM WITH RATE OF 100. IV ACCES IN R AC #18. IV IS INTACT, PATENT, AND FLUSHING WELL. SAFETY PRECAUTIONS IN PLACE: BED IN LOWEST, LOCKED POSITION, SIDERAILS UPx2, AND BRAKES ON. TABLE AND CALL LIGHT WITHIN REACH. WILL CONTINUE TO MONITOR.
--- NOTE | 2021-10-20 19:34 | NUR ---
TELE/RN CLOSING NOTES PATIENT IS ALERT AND ORIENTED X4, ABLE TO MAKE NEEDS KNOWN. ON OXYGEN AT 4 LPM VIA NASAL CANNULA. SKIN IS INTACT. PATIENT IS AMBULATORY AND BRP/ IV ACCESS ON RIGHT AC #18G IS INTACT AND PATENT ON SALINE LOCK. NO DISCOMFORTS REPORTED AT THIS TIME. TELEMONITOR IN PLACED WITH A READING OF ST 110 BPM. KEPT PATIENT COMFORTABLE. SAFETY PRECAUTIONS IN PLACED; BED LOCKED ON LOWEST POSITION, HOB ELEVATED, SIDE RAILS UPX2, CALL LIGHT WITHIN REACH. WILL ENDORSE TO THE NEXT SHIFT FOR ZELDA.
[2021-10-20 20:00] VITALS: BP 137/95
--- NOTE | 2021-10-20 22:01 | NUR ---
ADMINISTERED MORPHINE PER MD ORDER. VS WNL. WILL CONTINUE TO MONITOR.
[2021-10-20] MEDS: INSULIN GLARGINE, 100 UNIT/ML CARTRIDGE SQ SCH (22:18)
[2021-10-21] VITALS: BP 117/84
[2021-10-21] MEDS: MORPHINE SULFATE INJ 4 MG/ML DISP.SYRIN IV PRN ×4 (01:59→20:00)
--- NOTE | 2021-10-21 01:59 | NUR ---
ADMINISTERED MORPHINE PER MD ORDER FOR PAIN. VS WNL. WILL CONTINUE TO MONITOR.
[2021-10-21 04:00] VITALS: BP 118/80
[2021-10-21] MEDS: ONDANSETRON HCL/PF 4 MG/2 ML VIAL IVP PRN (04:05)
[2021-10-21] MEDS: FUROSEMIDE 40 MG/4 ML VIAL IV SCH ×3 (05:56→18:06)
[2021-10-21 06:28] LABS: BASOPHILS % (AUTO) 0.5 % (0.0-2.0); EOSINOPHILS % (AUTO) 1.7 % (0.0-6.0); HEMATOCRIT 35 % (33-45); HEMOGLOBIN 11.1 g/dL (11.5-14.8); LYMPHOCYTES # (AUTO) 1.2 K/uL (0.8-4.8); LYMPHOCYTES % (AUTO) 14.2 % (20.0-44.0); MEAN CORPUSCULAR HGB CONC 32 g/dl (31.0-36.0); MEAN CORPUSCULAR VOLUME 75 fL (82-100); MONOCYTES # (AUTO) 0.4 K/uL (0.1-1.30); MONOCYTES % (AUTO) 4.9 % (2.0-12.0); NEUTROPHILS # (AUTO) 6.8 K/uL (1.8-8.9); NEUTROPHILS % (AUTO) 78.7 % (43.0-81.0); PLATELET COUNT (AUTO) 263 K/uL (150-450); RED BLOOD CELL COUNT(AUTO) 4.63 MIL/uL (4.0-5.2); WHITE BLOOD COUNT (AUTO) 8.6 K/uL (4.3-11.0)
[2021-10-21] MEDS: INSULIN REGULAR, HUMAN 100 UNIT/ML 3 ML VIAL SQ PRN ×4 (06:41→22:23)
--- NOTE | 2021-10-21 07:21 | NUR ---
GLASS FURNACE TENDER CLOSING NOTES PT SITTING IN BED, AWAKE. AOx4. ABLE TO MAKE NEEDS KNOWN. ON 4 L/MIN VIA NASAL CANNULA AND TOLERATING WELL. NO SOB NOTED. NO S/SX OF RESPIRATORY DISTRESS NOTED. TELE MONITOR DETECTS SINUS RHYTHM WITH RATE OF 100. IV ACCES IN R hand #22G. IV IS INTACT, PATENT, AND FLUSHING WELL. ALL NEEDS MET. PT KEPT CLEAN AND DRY. SAFETY PRECAUTIONS IN PLACE: BED IN LOWEST, LOCKED POSITION, SIDERAILS UPx2, AND BRAKES ON. TABLE AND CALL LIGHT WITHIN REACH. WILL ENDORSE TO ONCOMING SHIFT FOR ZELDA.
[2021-10-21 08:02] VITALS: BP 108/81
[2021-10-21] MEDS: PANTOPRAZOLE 40 MG TABLET.DR PO SCH (08:24)
[2021-10-21] MEDS: ASPIRIN EC 81 MG TABLET.DR PO SCH (08:24)
[2021-10-21] MEDS: METFORMIN 500 MG TABLET PO SCH ×3 (08:24→16:33)
[2021-10-21] MEDS: SPIRONOLACTONE 25 MG TABLET PO SCH (08:24)
[2021-10-21] MEDS: METOPROLOL SUCCINATE 50 MG TAB.SR.24H PO SCH (08:25)
[2021-10-21] MEDS: VALSARTAN 80 MG TABLET PO SCH (08:25)
[2021-10-21] MEDS: ENOXAPARIN SODIUM 40 MG/0.4 ML DISP.SYRIN SQ SCH (08:29)
[2021-10-21] MEDS: BLOOD SUGAR DIAGNOSTIC 1 EACH STRIP IN SCH ×4 (08:30→22:11)
[2021-10-21 09:04] LABS: CALCIUM, SERUM 7.8 mg/dL (8.5-10.1); CREATININE 1.2 mg/dL (0.6-1.3); MAGNESIUM 1.7 mg/dL (1.8-2.4); PHOSPHORUS 5.5 mg/dL (2.5-4.9); POTASSIUM 3.5 mmol/L (3.5-5.1)
--- NOTE | 2021-10-21 09:40 | NUR ---
MEDICAL DATA ENTRY CLERK OPENING NOTE Patient in bed, awake. A/O x 4, able to make needs known. On O2 at 4 LPM via NC, breathing evenly and unlabored. No SOB or s/s of distress noted. IV access on Right hand #22G, intact and patent. On tele monitoring showing SR, HR on the 80's. Safety precautions in place: bed in low, locked position; siderails up x 2; call light within reach. Will continue to monitor.
[2021-10-21 11:45] VITALS: BP 123/86
--- NOTE | 2021-10-21 13:49 | NUR ---
RN NOTE PATIENT COMPLAINED OF SEVERE PAIN 08/02. ASKED FOR PRN PAIN MEDICATION, VITALS WNL WILL CONTINUE TO MONITOR
[2021-10-21] MEDS: MAGNESIUM HYDROXIDE 30 ML UDC PO PRN (14:29)
[2021-10-21 15:53] VITALS: BP 104/78
--- NOTE | 2021-10-21 16:39 | NUR ---
RN NOTE Held Metformin due at 1700. Patient had CT w/ contrast done last 10/20/2021, with order to hold Metformin until 10/23/2021.
--- NOTE | 2021-10-21 18:40 | NUR ---
OFFICE HELPER CLOSING NOTE Patient in bed, resting comfortably. A/O x 4, able to make needs known. Stable on O2 at 4 LPM via NC. No SOB or s/s of distress noted. IV access on Right hand #22G, intact, patent, and flushes well. On tele monitoring showing SR, HR on the 80's. All needs attended to. Due meds given. Safety precautions maintained: bed in low, locked position; siderails up x 2; call light within reach. Will endorse to fuels sales representative nurse for ZELDA.
--- NOTE | 2021-10-21 19:46 | NUR ---
RN NICU OPENING NOTES RECEIVED PT SITTING IN BED, AWAKE. AOx4. ABLE TO MAKE NEEDS KNOWN. ON 4 L/MIN VIA NASAL CANNULA AND TOLERATING WELL. NO SOB NOTED. NO S/SX OF RESPIRATORY DISTRESS NOTED. TELE MONITOR DETECTS SINUS RHYTHM WITH RATE OF 93. IV ACCES IN R HAND #22. IV IS INTACT, PATENT, AND FLUSHING WELL. SAFETY PRECAUTIONS IN PLACE: BED IN LOWEST, LOCKED POSITION, SIDERAILS UPx2, AND BRAKES ON. TABLE AND CALL LIGHT WITHIN REACH. WILL CONTINUE TO MONITOR.
--- NOTE | 2021-10-21 20:00 | NUR ---
ADMINISTERED MORPHINE PER MD ORDER FOR PAIN. VS WNL. WILL CONTINUE TO MONITOR.
[2021-10-21 20:14] VITALS: BP 121/87
[2021-10-21] MEDS: INSULIN GLARGINE, 100 UNIT/ML CARTRIDGE SQ SCH (22:12)
[2021-10-21] MEDS: ZOLPIDEM TARTRATE 5 MG TABLET PO PRN (22:13)
[2021-10-22 00:18] VITALS: BP 96/66
[2021-10-22] MEDS: MORPHINE SULFATE INJ 4 MG/ML DISP.SYRIN IV PRN ×5 (00:53→23:58)
--- NOTE | 2021-10-22 00:54 | NUR ---
ADMINISTERED MORPHINE PER MD ORDER FOR PAIN. VS WNL. BP TAKEN AGAIN AND WAS 121/89. WILL CONTINUE TO MONITOR.
[2021-10-22 04:18] VITALS: BP 114/73
--- NOTE | 2021-10-22 04:30 | NUR ---
ADMINISTERED MORPHINE PER MD ORDER FOR PAIN. VS WNL. WILL CONTINUE TO MONITOR.
[2021-10-22 06:11] LABS: BASOPHILS % (AUTO) 0.5 % (0.0-2.0); HEMATOCRIT 36 % (33-45); HEMOGLOBIN 11.5 g/dL (11.5-14.8); LYMPHOCYTES # (AUTO) 1.6 K/uL (0.8-4.8); MEAN CORPUSCULAR HGB CONC 32 g/dl (31.0-36.0); MEAN CORPUSCULAR VOLUME 74 fL (82-100); MONOCYTES # (AUTO) 0.6 K/uL (0.1-1.30); NEUTROPHILS # (AUTO) 5.5 K/uL (1.8-8.9); NEUTROPHILS % (AUTO) 68.5 % (43.0-81.0); PLATELET COUNT (AUTO) 282 K/uL (150-450); RED BLOOD CELL COUNT(AUTO) 4.84 MIL/uL (4.0-5.2); WHITE BLOOD COUNT (AUTO) 8.1 K/uL (4.3-11.0)
[2021-10-22] MEDS: BLOOD SUGAR DIAGNOSTIC 1 EACH STRIP IN SCH ×4 (06:31→21:33)
[2021-10-22] MEDS: FUROSEMIDE 40 MG/4 ML VIAL IV SCH ×2 (06:31)
[2021-10-22] MEDS: PANTOPRAZOLE 40 MG TABLET.DR PO SCH (06:31)
[2021-10-22] MEDS: INSULIN REGULAR, HUMAN 100 UNIT/ML 3 ML VIAL SQ PRN ×4 (06:33→21:37)
[2021-10-22 06:53] LABS: BILIRUBIN,TOTAL 0.5 mg/dL (0.2-1.0); CALCIUM, SERUM 8.3 mg/dL (8.5-10.1); CREATININE 1.1 mg/dL (0.6-1.3); MAGNESIUM 2.5 mg/dL (1.8-2.4); PHOSPHORUS 4.9 mg/dL (2.5-4.9); POTASSIUM 3.6 mmol/L (3.5-5.1); TOTAL PROTEIN, SERUM 6.3 g/dL (6.4-8.2)
--- NOTE | 2021-10-22 06:55 | NUR ---
BUCKLE ATTACHING MACHINE OPERATOR CLOSING NOTES PT SITTING IN BED, AWAKE. AOx4. ABLE TO MAKE NEEDS KNOWN. ON RA AND TOLERATING WELL. NO SOB NOTED. NO S/SX OF RESPIRATORY DISTRESS NOTED. TELE MONITOR DETECTS SINUS RHYTHM WITH RATE OF 9-110. IV ACCES IN R HAND #22. IV IS INTACT, PATENT, AND FLUSHING WELL. ALL NEEDS MET PT KETP CLEAN AND DRY. SAFETY PRECAUTIONS IN PLACE: BED IN LOWEST, LOCKED POSITION, SIDERAILS UPx2, AND BRAKES ON. TABLE AND CALL LIGHT WITHIN REACH. WILL ENDORSE TO ONCOMING SHIFT FOR ZELDA.
--- NOTE | 2021-10-22 07:30 | NUR ---
INSTRUMENTATION ENGINEER NOTES PT SEEN AND EXAMINED BY DR. FERNANDEZ, PLAN OF CARE DISCUSSED WITH PT, VERBALIZED UNDERSTANDING.
--- NOTE | 2021-10-22 07:43 | NUR ---
PARACHUTE PACKER OPENING NOTES PT SITTING IN BED, AOx4, ABLE TO MAKE NEEDS KNOWN. ON RA AND TOLERATING WELL. NO SOB NOTED. NO S/SX OF RESPIRATORY DISTRESS. IV ACCES IN R HAND #22. IV IS INTACT, PATENT, AND FLUSHING WELL. SAFETY PRECAUTIONS IN PLACE: BED IN LOWEST, LOCKED POSITION, SIDERAILS UPx2, AND BRAKES ON. TABLE AND CALL LIGHT WITHIN REACH.
[2021-10-22 08:15] VITALS: BP 129/70
[2021-10-22] MEDS: ASPIRIN EC 81 MG TABLET.DR PO SCH (08:43)
[2021-10-22] MEDS: SPIRONOLACTONE 25 MG TABLET PO SCH (08:43)
[2021-10-22] MEDS: METOPROLOL SUCCINATE 50 MG TAB.SR.24H PO SCH (08:44)
[2021-10-22] MEDS: VALSARTAN 80 MG TABLET PO SCH (08:44)
[2021-10-22] MEDS: ENOXAPARIN SODIUM 40 MG/0.4 ML DISP.SYRIN SQ SCH (08:45)
[2021-10-22] MEDS: ONDANSETRON HCL/PF 4 MG/2 ML VIAL IVP PRN ×2 (08:49→08:56)
[2021-10-22] MEDS: METFORMIN 500 MG TABLET PO SCH ×2 (08:51→16:18)
--- NOTE | 2021-10-22 08:51 | NUR ---
CINDY GUEVARA NOTES METFORMIN 500MG HELD DUE TO CT ON .
[2021-10-22] MEDS ORDERED: BUMETANIDE INJ 8 MG in IV NS 0.9% 48 ML IV ONE (09:00)
[2021-10-22] MEDS: POTASSIUM CHLORIDE 20 MEQ TAB.PRT.SR PO SCH ×3 (09:08→11:58)
[2021-10-22 12:00] VITALS: BP 112/65
--- NOTE | 2021-10-22 16:19 | NUR ---
MEAT PUMPER NOTE METFORMIN 500 [address] HELD DUE TO [address] ON 10/20.
--- NOTE | 2021-10-22 19:00 | NUR ---
RN CLOSING NOTES PT SITTING IN BED, AWAKE. AOx4. ABLE TO MAKE NEEDS KNOWN. ON RA AND TOLERATING WELL. NO SOB. NO S/SX OF RESPIRATORY DISTRESS. TELE MONITOR DETECTS SINUS RHYTHM WITH RATE OF 85. IV ACCES IN R HAND #22. IV IS INTACT & PATENT. ALL MEDS ADMINISTERED ORDERED. SAFETY PRECAUTIONS IN PLACE: BED IN LOWEST, LOCKED POSITION, SIDE RAILS UPx2, AND BRAKES ON. BEDSIDE TABLE AND CALL LIGHT WITHIN REACH. WILL ENDORSE TO ONCOMING SHIFT FOR CONTINUED CARE.
--- NOTE | 2021-10-22 19:20 | NUR ---
RN OPENING NOTES Patient is A&Ox4, denies CP at this time. Reminded patient to use BSC to conserve energy and prevent CP. Bumex infusion almost completed, but currently infusing at 10cc/hr. NSR on monitor. No signs of distress. Will continue to monitor.
[2021-10-22 20:00] VITALS: BP 114/74
[2021-10-22] MEDS: INSULIN GLARGINE, 100 UNIT/ML CARTRIDGE SQ SCH (21:38)
[2021-10-22] MEDS: ZOLPIDEM TARTRATE 5 MG TABLET PO PRN (21:42)
[2021-10-23] VITALS: BP 108/79
[2021-10-23 04:00] VITALS: BP 113/80
[2021-10-23] MEDS: MORPHINE SULFATE INJ 4 MG/ML DISP.SYRIN IV PRN ×6 (04:05→23:13)
[2021-10-23] MEDS: ONDANSETRON HCL/PF 4 MG/2 ML VIAL IVP PRN ×2 (05:44→13:08)
--- NOTE | 2021-10-23 05:57 | NUR ---
PRN zofran given for nausea, pt. had x1 episode of emesis yellowish in color. Will reassess effect of zofran.
[2021-10-23 06:42] LABS: BASOPHILS % (AUTO) 0.4 % (0.0-2.0); EOSINOPHILS % (AUTO) 3.7 % (0.0-6.0); HEMATOCRIT 38 % (33-45); HEMOGLOBIN 12.1 g/dL (11.5-14.8); LYMPHOCYTES # (AUTO) 1.4 K/uL (0.8-4.8); LYMPHOCYTES % (AUTO) 17.8 % (20.0-44.0); MEAN CORPUSCULAR HGB CONC 32 g/dl (31.0-36.0); MEAN CORPUSCULAR VOLUME 74 fL (82-100); MONOCYTES # (AUTO) 0.5 K/uL (0.1-1.30); MONOCYTES % (AUTO) 6.6 % (2.0-12.0); NEUTROPHILS # (AUTO) 5.6 K/uL (1.8-8.9); NEUTROPHILS % (AUTO) 71.5 % (43.0-81.0); PLATELET COUNT (AUTO) 298 K/uL (150-450); RED BLOOD CELL COUNT(AUTO) 5.13 MIL/uL (4.0-5.2); WHITE BLOOD COUNT (AUTO) 7.8 K/uL (4.3-11.0)
[2021-10-23 06:46] LABS: ALBUMIN 3.2 g/dL (3.4-5.0); BILIRUBIN,TOTAL 0.5 mg/dL (0.2-1.0); CREATININE 1.4 mg/dL (0.6-1.3); PHOSPHORUS 5.1 mg/dL (2.5-4.9); POTASSIUM 3.3 mmol/L (3.5-5.1); TOTAL PROTEIN, SERUM 6.6 g/dL (6.4-8.2)
[2021-10-23] MEDS: BLOOD SUGAR DIAGNOSTIC 1 EACH STRIP IN SCH ×4 (06:47→22:04)
[2021-10-23] MEDS: INSULIN REGULAR, HUMAN 100 UNIT/ML 3 ML VIAL SQ PRN ×4 (06:50→22:02)
--- NOTE | 2021-10-23 06:55 | NUR ---
Patient has been A&Ox4 overnight. C/o few times of chest pain relieved by PRN morphine. Had 1 episode of nausea and emesis relieved quickly by PRN zofran and nursing interventions. No s/s of hypo or hyperglycemic reactions noted. Urinated x9, x1 BM. SR 80s-90s on monitor.
[2021-10-23] MEDS ORDERED: POTASSIUM CHLORIDE 20 MEQ TAB.PRT.SR PO ONE (07:30)
--- NOTE | 2021-10-23 07:34 | NUR ---
SUBWAY OPERATOR OPENING NOTES PT RESTING BED, AOx4, ABLE TO MAKE NEEDS KNOWN, PT IS COMFORTABLE, STATES SLEPT WELL, ON RA AND TOLERATING WELL. NO SOB NOTED. NO S/SX OF RESPIRATORY DISTRESS. IV ACCES IN R HAND #22. IV IS INTACT, PATENT, AND FLUSHING WELL. SAFETY PRECAUTIONS IN PLACE. BED IN LOWEST, LOCKED POSITION, SIDERAILS UPx2, AND BRAKES ON. TABLE AND CALL LIGHT WITHIN REACH. Addendum: 10/23/21 at 0749 by LATHA FLORES RN =========DISREGARD ABOVE NOTES, THESE ARE USER ERRORS
--- NOTE | 2021-10-23 07:49 | NUR ---
HALVER MACHINE OPERATOR OPENING NOTES PT RESTING BED, AOx4, ABLE TO MAKE NEEDS KNOWN, PT IS COMFORTABLE, STATES SLEPT WELL, ON RA AND TOLERATING WELL. NO SOB NOTED. NO S/SX OF RESPIRATORY DISTRESS. IV ACCES IN R HAND #22. IV IS INTACT, PATENT, AND FLUSHING WELL. SAFETY PRECAUTIONS IN PLACE. BED IN LOWEST, LOCKED POSITION, SIDERAILS UPx2, AND BRAKES ON. TABLE AND CALL LIGHT WITHIN REACH.
[2021-10-23 08:00] VITALS: BP 112/77
[2021-10-23] MEDS ORDERED: POTASSIUM CHLORIDE 20 MEQ TAB.PRT.SR PO SCH (08:00)
[2021-10-23] MEDS: METFORMIN 500 MG TABLET PO SCH ×2 (08:32→16:21)
[2021-10-23] MEDS: PANTOPRAZOLE 40 MG TABLET.DR PO SCH (08:32)
[2021-10-23] MEDS: ENOXAPARIN SODIUM 40 MG/0.4 ML DISP.SYRIN SQ SCH (08:32)
[2021-10-23] MEDS: FUROSEMIDE 40 MG TABLET PO SCH (08:32)
[2021-10-23] MEDS: ASPIRIN EC 81 MG TABLET.DR PO SCH (08:32)
[2021-10-23] MEDS: VALSARTAN 80 MG TABLET PO SCH (09:00)
[2021-10-23] MEDS: METOPROLOL SUCCINATE 50 MG TAB.SR.24H PO SCH (09:00)
[2021-10-23] MEDS: SPIRONOLACTONE 25 MG TABLET PO SCH (09:00)
[2021-10-23] MEDS: POTASSIUM CHLORIDE 20 MEQ TAB.PRT.SR PO SCH (09:47)
[2021-10-23] MEDS: MAGNESIUM HYDROXIDE 30 ML UDC PO PRN (15:28)
[2021-10-23 16:00] VITALS: BP 121/76
--- NOTE | 2021-10-23 18:50 | NUR ---
RN CLOSING NOTES PT IS A/O X4, RESTING IN BED, NO SOB, NO RR DISTRESS, ON ROOM AIR, PT IS MOBILE, CONTINENT, RIGHT HAND SALINE LOCK GAUGE # 22, PATENT AND FLOWS WELL, NO INFILTRATION NOTED, ADMINISTERED MEDS ORDERED, I&0 RECORDED, PT REQUEST MILK OF MAG DUE TO CONSTIPATION, SAFETY PRECAUTION MET, BED LOCK ON, CALL LIGHT WITHIN REACH, BED RAIL X2, WILL ENDORSE TO NEXT SHIFT RN FOR CONTINUITY OF CARE.
--- NOTE | 2021-10-23 19:30 | NUR ---
RN OPENING NOTE PATIENT A/O X 4, ABLE TO MAKE NEEDS KNOWN. PATIENT CURRENTLY ON RA 95%, HOWEVER PATIENT REPORTS MILD DYSPNEA UPON EXERTION, ADVISED PATIENT TO KEEP 2LPM O2 SUPPLEMENTATION ON. R HAND IV ACCESS CAME OFF S/T BEING WET. WILL INSERT NEW IV AT A LATER TIME. TELE MONITOR READ SR 80 BPM. SAFETY MEASURES IN PLACE; BED LOCKED AND IN LOWEST POSITION, CALL LIGHT WITHIN REACH, SIDE RAILS UP. WILL MONITOR PATIENT CLOSELY.
[2021-10-23 20:00] VITALS: BP 121/88
--- NOTE | 2021-10-23 20:09 | NUR ---
RN NOTE NEW IV INSERTED L AC 20 G, PATENT AND INTACT, FLUSHES WELL
--- NOTE | 2021-10-23 20:15 | NUR ---
RN NOTE PATIENT C/O ABDOMINAL PAIN 08/02, GAVE PRN MORPHINE. WILL REASSESS PAIN AT A LATER TIME.
--- NOTE | 2021-10-23 22:00 | NUR ---
BS 152 MG/DL, 2 UNITS REGULAR INSULIN GIVEN IN ADDITION TO LANTUS DOSE. WILL MONITOR FOR HYPO/HYPERGLYCEMIA. SNACKS PROVIDED.
[2021-10-23] MEDS: INSULIN GLARGINE, 100 UNIT/ML CARTRIDGE SQ SCH (22:04)
--- NOTE | 2021-10-23 23:15 | NUR ---
RN NOTE PATIENT C/O ABDOMINAL/BACK PAIN 07/02, GAVE PRN MORPHINE. WILL REASSESS PAIN AT A LATER TIME.
[2021-10-24] VITALS: BP 115/78
[2021-10-24] MEDS: MORPHINE SULFATE INJ 4 MG/ML DISP.SYRIN IV PRN ×3 (03:30→13:43)
--- NOTE | 2021-10-24 03:31 | NUR ---
RN NOTE PATIENT C/O CHEST/BACK PAIN 07/02, GAVE PRN MORPHINE 4MG. WILL REASSESS PAIN AT A LATER TIME.
[2021-10-24 04:00] VITALS: BP 111/74
[2021-10-24] MEDS: NITROGLYCERIN 0.4 MG/TAB BOTTLE SL PRN ×2 (06:12→06:19)
--- NOTE | 2021-10-24 06:12 | NUR ---
PATIENT COMPLAINING OF CHEST PAIN AND DIZZINESS. EMESIS PRESENT. NITROSTAT GIVEN FOR CHEST PAIN. BP 100/74, 97% ON 2L O2 SUPPLEMENT NC, NO CHANGES ON HEART RHYTHM. WILL REASSESS CHEST PAIN. PATIENT ADMINISTERED ZOFRAN FOR NAUSEA/V.
[2021-10-24] MEDS: ONDANSETRON HCL/PF 4 MG/2 ML VIAL IVP PRN (06:13)
[2021-10-24 06:17] LABS: BASOPHILS # (AUTO) 0.1 K/uL (0.0-0.2); BASOPHILS % (AUTO) 0.7 % (0.0-2.0); EOSINOPHILS % (AUTO) 3.4 % (0.0-6.0); HEMATOCRIT 37 % (33-45); HEMOGLOBIN 11.8 g/dL (11.5-14.8); LYMPHOCYTES # (AUTO) 1.4 K/uL (0.8-4.8); LYMPHOCYTES % (AUTO) 16.5 % (20.0-44.0); MEAN CORPUSCULAR HGB CONC 32 g/dl (31.0-36.0); MEAN CORPUSCULAR VOLUME 74 fL (82-100); MONOCYTES # (AUTO) 0.7 K/uL (0.1-1.30); MONOCYTES % (AUTO) 8.4 % (2.0-12.0); NEUTROPHILS # (AUTO) 5.9 K/uL (1.8-8.9); PLATELET COUNT (AUTO) 285 K/uL (150-450); RED BLOOD CELL COUNT(AUTO) 4.98 MIL/uL (4.0-5.2); WHITE BLOOD COUNT (AUTO) 8.3 K/uL (4.3-11.0)
--- NOTE | 2021-10-24 06:21 | NUR ---
PATIENT'S CHEST PAIN NOT IMPROVED. GAVE ANOTHER SUBLINGUAL NITROSTAT.
[2021-10-24] MEDS: INSULIN REGULAR, HUMAN 100 UNIT/ML 3 ML VIAL SQ PRN ×2 (06:23→11:37)
[2021-10-24] MEDS: BLOOD SUGAR DIAGNOSTIC 1 EACH STRIP IN SCH ×2 (06:53→11:43)
--- NOTE | 2021-10-24 07:03 | NUR ---
RN CLOSING NOTE PATIENT A/O X 4, ABLE TO MAKE NEEDS KNOWN. PATIENT ON 2L NC, 97%, ADVISED PATIENT TO KEEP 2LPM O2 SUPPLEMENTATION ON. L AC 20 G PATENT AND INTACT. N/V MANAGED WITH ZOFRAN, PAIN WITH MORPHINE/CHEST PAIN WITH NITROSTAT. PATIENT CHEST PAIN IMPROVED AFTER SECOND NITROSTAT. TELE MONITOR READ SR 80 BPM. BS 187 3 UNITS REGULAR INSULIN GIVEN. SAFETY MEASURES IMPLEMENTED. ALL NEEDS MET AND ATTENDED, ALL ORDERS CARRIED OUT. WILL ENDORSE TO DAY SHIFT NURSE FOR ZELDA.
[2021-10-24 07:05] LABS: CALCIUM, SERUM 8.4 mg/dL (8.5-10.1); CREATININE 1.2 mg/dL (0.6-1.3); POTASSIUM 3.5 mmol/L (3.5-5.1)
[2021-10-24] MEDS ORDERED: POTA20TA83 PO (07:10)
[2021-10-24] MEDS ORDERED: Aspirin Ec PO (07:10)
--- NOTE | 2021-10-24 07:30 | NUR ---
INVESTMENT ASSOCIATE OPENING NOTES RECEIVED PATIENT IN BED, AWAKE, ALERT & ORIENTED X 4, ON O2 VIA NC AT 2LPM, NO S/SX OF RESPIRATORY DISTRESS NOTED. IV ACCESS ON LAC G#20 PATENT NAD FLUSHES WELL. NO COMPLAINTS OF PAIN AT THIS TIME. SAFETY PRECAUTIONS IN PLACE: BED ON LOWEST LOCKED POSITION, SIDE RAILS UP X 2, CALL LIGHT WITHIN EASY REACH. WILL CONTINUE TO MONITOR ACCORDINGLY.
[2021-10-24] MEDS: PANTOPRAZOLE 40 MG TABLET.DR PO SCH (07:37)
[2021-10-24 08:00] VITALS: BP 126/79
[2021-10-24] MEDS: POTASSIUM CHLORIDE 20 MEQ TAB.PRT.SR PO SCH (08:16)
[2021-10-24] MEDS: SPIRONOLACTONE 25 MG TABLET PO SCH (08:17)
[2021-10-24] MEDS: FUROSEMIDE 40 MG TABLET PO SCH (08:17)
[2021-10-24] MEDS: ASPIRIN EC 81 MG TABLET.DR PO SCH (08:17)
[2021-10-24] MEDS: METFORMIN 500 MG TABLET PO SCH (08:17)
[2021-10-24] MEDS: METOPROLOL SUCCINATE 50 MG TAB.SR.24H PO SCH (08:18)
[2021-10-24 08:19] VITALS: BP 126/79
[2021-10-24] MEDS: VALSARTAN 80 MG TABLET PO SCH (08:19)
[2021-10-24] MEDS: ENOXAPARIN SODIUM 40 MG/0.4 ML DISP.SYRIN SQ SCH (08:20)
--- NOTE | 2021-10-24 08:38 | NUR ---
RN NOTES PATIENT HAS C/O PAIN ON MEDIAL BACK WITH PAIN SCALE OF 9/10. DUE PRN MORPHINE 4 MG GIVEN ORDERED. WILL CONTINUE TO MONITOR PATIENT.
[2021-10-24] MEDS: HYDROCODONE/APAP 5/325MG TABLET PO PRN (10:44)
--- NOTE | 2021-10-24 15:55 | NUR ---
TOLL TRANSMISSION WORKER NOTES DISCHARGED PATIENT IN STABLE CONDITION. VITAL SIGNS WITHIN NORMAL LIMITS. DISCHARGE INSTRUCTIONS AND FOLLOW UP INSTRUCTED TO THE PATIENT, PATIENT VERBALIZED UNDERSTANDING. IV ACCESS REMOVED, COVERED WITH GAUZE, NO BLEEDING NOTED. ARMBAND REMOVED. BELONGINGS ACCOUNTED AND SIGNED FOR. WHEELED PATIENT DOWN TO LOBBY ACCOMPANIED BY ELMER (CAM). LEFT UNIT IN STABLE CONDITION. MD AND CHARGE NURSE AWARE OF DISCHARGE.
== END 2021-10-24 15:55 | disposition home or self-care (01) | DRG 194 ==
LOC: ER 00:42 → TRANSITION 05:00 → TELE 09:42
PROVIDERS: ADMIT Nurse Practitioner Acute Care; ATTEND Family Medicine
DX: I11.0 Hypertensive heart disease with heart failure (principal); I21.4 Non-ST elevation (NSTEMI) myocardial infarction; I42.9 Cardiomyopathy, unspecified; I50.43 Acute on chronic combined systolic (congestive) and diastolic (congestive) heart failure; K21.9 Gastro-esophageal reflux disease without esophagitis; I25.2 Old myocardial infarction; Z98.890 Other specified postprocedural states; Z86.16 Personal history of COVID-19; Z88.8 Allergy status to other drugs, medicaments and biological substances; Z79.4 Long term (current) use of insulin; Z79.899 Other long term (current) drug therapy; Z90.5 Acquired absence of kidney; Z90.721 Acquired absence of ovaries, unilateral; E87.6 Hypokalemia; E78.5 Hyperlipidemia, unspecified; E11.65 Type 2 diabetes mellitus with hyperglycemia
CPT/HCPCS: 36415; 71045-TC; 80048-TC; 80053-TC; 80076-TC; 82962-TC; 83735-TC; 83880; 84100-TC; 84484-TC; 84703-TC; 85025-TC; 85730-TC; 87081-TC; 93307-TC; 97116-TC; 97530-TC; C9803; G0378; J1650; J1815; J1885; J1940; J2270; J2405; J3490; J7030; J7050; Q9967

== ENCOUNTER 2021-12-18 | Inpatient (IN) | payer OTHER ==
[~2021-12-18] VITALS: Ht 160 cm; Wt 92.2 kg
[~2021-12-18] MED LIST changes: +Aspirin Ec PO; +POTA20TA83 PO
--- NOTE | 2021-12-18 00:15 | NUR ---
PT BIBS C/O SOB AND CP X3 DAYS. ASPIRIN AND LASIX TAKEN INDUSTRIAL ORDER CLERK +N/V AND C/O ABDOMINAL PAIN. PT A/OX4. TOLERATING R/A AT 97%. CONNECTED PT TO POX AND MONITOR.
[2021-12-18] MEDS ORDERED: ASPIRIN 325 MG TABLET PO ONE (00:30)
[2021-12-18] MEDS ORDERED: ASPIRIN 325 MG TABLET ONE (00:37)
--- NOTE | 2021-12-18 00:44 | NUR ---
RAC #18G S/L; PATENT AND INTACT. BLOOD AND COVID ANTIGEN COLLECTED AND SENT TO LAB
--- NOTE | 2021-12-18 00:44 | NUR ---
FIRE PRODUCTION OPERATOR AT PT'S BEDSIDE
[2021-12-18] MEDS ORDERED: ONDANSETRON HCL/PF 4 MG/2 ML VIAL ONE (00:46)
[2021-12-18 00:56] LABS: BASOPHILS # (AUTO) 0.1 K/uL (0.0-0.2); BASOPHILS % (AUTO) 0.7 % (0.0-2.0); EOSINOPHILS % (AUTO) 0.6 % (0.0-6.0); HEMATOCRIT 34 % (33-45); HEMOGLOBIN 10.7 g/dL (11.5-14.8); LYMPHOCYTES # (AUTO) 1.2 K/uL (0.8-4.8); MEAN CORPUSCULAR HGB CONC 32 g/dl (31.0-36.0); MEAN CORPUSCULAR VOLUME 73 fL (82-100); MONOCYTES # (AUTO) 0.4 K/uL (0.1-1.30); MONOCYTES % (AUTO) 4.2 % (2.0-12.0); NEUTROPHILS # (AUTO) 8.3 K/uL (1.8-8.9); NEUTROPHILS % (AUTO) 82.5 % (43.0-81.0); PLATELET COUNT (AUTO) 319 K/uL (150-450); RED BLOOD CELL COUNT(AUTO) 4.63 MIL/uL (4.0-5.2)
[2021-12-18] MEDS ORDERED: ONDANSETRON HCL/PF 4 MG/2 ML VIAL IV ONE (01:00)
[2021-12-18 01:09] LABS: D-DIMER 1.29 mg/L(FEU (0.17-0.50)
[2021-12-18 01:12] LABS: CREATININE 1.2 mg/dL (0.6-1.3); POTASSIUM 3.5 mmol/L (3.5-5.1)
[2021-12-18 01:26] LABS: ALBUMIN 3.1 g/dL (3.4-5.0); BILIRUBIN,DIRECT 0.1 mg/dL (0.0-0.2); BILIRUBIN,TOTAL 0.4 mg/dL (0.2-1.0); TOTAL PROTEIN, SERUM 6.4 g/dL (6.4-8.2)
[2021-12-18] MEDS ORDERED: NITROGLYCERIN 0.4 MG/TAB BOTTLE ONE (01:29)
[2021-12-18] MEDS ORDERED: NITROGLYCERIN 0.4 MG/TAB BOTTLE SL ONE (01:30)
[2021-12-18] MEDS ORDERED: IOHEXOL-350 100 ML VIAL IV ONE (02:31)
[2021-12-18] MEDS ORDERED: IV NS 0.9% 250 ML IV ONE (02:32)
[2021-12-18] MEDS ORDERED: DEXAMETHASONE SOD PHOSPHATE 10 MG/ML VIAL ONE (02:38)
--- NOTE | 2021-12-18 02:52 | NUR ---
S/P CTA WITH CONTRAST. NOTE NOT TO TAKE 48 HOURS S/P PROCEDURE. EDUCATED PT AND VERBALIZED UNDERSTANDING
--- NOTE | 2021-12-18 02:55 | NUR ---
PT RETURNED TO ER [facility]
[2021-12-18] MEDS ORDERED: DEXAMETHASONE SOD PHOSPHATE 4 MG/ML VIAL IM ONE (03:00)
[2021-12-18] MEDS ORDERED: MORPHINE SULFATE INJ 4 MG/ML DISP.SYRIN ONE ×3 (03:20→10:06)
[2021-12-18] MEDS ORDERED: MORPHINE SULFATE INJ 2 MG/ML DISP.SYRIN IV ONE (03:30)
[2021-12-18] MEDS ORDERED: MAG HYDROX/AL HYDROX/SIMETH 30 ML UDC PO PRN (04:30)
[2021-12-18] MEDS ORDERED: NITROGLYCERIN 4.9 GM SPRAY SL ONE (04:30)
[2021-12-18] MEDS ORDERED: MAGNESIUM HYDROXIDE 30 ML UDC PO PRN (04:30)
[2021-12-18] MEDS ORDERED: Z GUARD REMEDY 4 OZ OINT TP PRN (04:30)
[2021-12-18] MEDS ORDERED: ACETAMINOPHEN 325 MG TABLET PO PRN (04:30)
--- NOTE | 2021-12-18 05:32 | NUR ---
MRSA SWAB COLLECTED AND SENT TO LAB. PATIENT'S BELONGINGS LIST DONE.
[2021-12-18] MEDS: MORPHINE SULFATE INJ 2 MG/ML DISP.SYRIN IV PRN ×5 (06:06→23:24)
[2021-12-18] MEDS ORDERED: ALBU8.5H8 IH (08:36)
[2021-12-18] MEDS ORDERED: OXCA150T13 PO (08:36)
[2021-12-18] MEDS ORDERED: ATOR10TA PO (08:36)
[2021-12-18] MEDS ORDERED: POTA10TA10 PO (08:36)
[2021-12-18] MEDS ORDERED: ASPI-1420 PO (08:36)
[2021-12-18] MEDS: FUROSEMIDE 40 MG TABLET PO SCH (08:38)
[2021-12-18] MEDS: VALSARTAN 80 MG TABLET PO SCH (08:48)
[2021-12-18] MEDS: ASPIRIN EC 81 MG TABLET.DR PO SCH (08:48)
[2021-12-18] MEDS: METOPROLOL SUCCINATE 50 MG TAB.SR.24H PO SCH (08:48)
[2021-12-18] MEDS ORDERED: FUROSEMIDE 40 MG TABLET ONE (09:38)
[2021-12-18] MEDS ORDERED: METOPROLOL SUCCINATE 25 MG TAB.SR.24H ONE (09:38)
[2021-12-18] MEDS ORDERED: ASPIRIN EC 81 MG TABLET.DR PO ONE (09:38)
[2021-12-18] MEDS: SPIRONOLACTONE 25 MG TABLET PO SCH (09:38)
[2021-12-18] MEDS ORDERED: SPIRONOLACTONE 25 MG TABLET ONE (09:39)
[2021-12-18] MEDS ORDERED: VALSARTAN 80 MG TABLET ONE (09:39)
--- NOTE | 2021-12-18 13:27 | NUR ---
NURSING SUP GAVE TELE BED 315-1.
--- NOTE | 2021-12-18 13:54 | NUR ---
report given to ray for kaiden
[2021-12-18 14:12] LABS: BAND % (MANUAL) 1 % (0.0-5.0); LYMPHOCYTES % (MANUAL) 11 % (16-48); NEUTROPHILS % (MANUAL) 86 (42-76)
[2021-12-18 14:13] LABS: MONOCYTES % (MANUAL) 2 % (0-11.0)
[2021-12-18] MEDS: ONDANSETRON HCL/PF 4 MG/2 ML VIAL IVP PRN (14:22)
--- NOTE | 2021-12-18 14:29 | NUR ---
PT TRANSPORTED USING ACLS PROTOCOL
--- NOTE | 2021-12-18 15:29 | NUR ---
SUPERVISOR [employer] ADMITTING NOTES PT ADMITTED TO UNIT AT 1410 VIA WHEELCHAIR ACCOMPANIED BY Jose Enrique AMARO RN WITH DX OF CHEST PAIN R/O ACS. PT IS A/O X4. ABLE TO MAKE NEEDS KNOWN, C/O CHEST PAIN 8/10 SCALE AND NAUSEA. PRN MORPHINE 4MG IV AND ZOFRAN 4MG IV ADMINISTERED ORDERED. PT ORIENTED TO ROOM AND STAFF. ON ROOM AIR, TOLERATING WELL WITH NO ACUTE RESPIRATORY DISTRESS NOTED. V/S TAKEN AND RECORDED. PT WITH IV ACCESS NOTED ON RAC G#18 INTACT AND PATENT. PT PLACED ON TELE-MONITOR WITH CURRENT READING OF NSR, HR ON THE 80'S, NO C/O CARDIAC DISTRESS VOICED. SKIN IS INTACT WITH NO SKIN IMPAIRMENTS NOTED. SAFETY MEASURES INITIATED: BED PLACED IN LOWEST LOCKED POSITION WITH SR-UP X2 AND CALL LIGHT AND BEDSIDE TABLE W/I EASY REACH OF PT. WILL CONTINUE TO MONITOR PT.
[2021-12-18 16:00] VITALS: BP 123/91
[2021-12-18] MEDS ORDERED: METOCLOPRAMIDE HCL 10 MG/2 ML VIAL IV PRN (17:00)
--- NOTE | 2021-12-18 17:19 | NUR ---
RN NOTES PT C/O OF NAUSEA AGAIN BUT IT'S NOT DUE FOR ZOFRAN IV YET, DR JONIER MADE AWARE AND ORDERED REGLAN 5MG IV Q 6HRS PRN. REGLAN 5MG IVP ADMINISTERED AT 1710 VIA IV ACCESS ON RAC. WILL CONTINUE TO MONITOR AND REASSESS PT.
--- NOTE | 2021-12-18 18:38 | NUR ---
ROLLER TURNER OPENING NOTES PT AWAKE AND WATCHING TV AT THIS TIME. A/O X4. ABLE TO MAKE NEEDS KNOWN. AMBULATORY WITH STEADY GAIT. ON ROOM AIR, TOLERATING WELL WITH NO ACUTE RESPIRATORY DISTRESS NOTED. IV ACCESS ON RAC G#18 INTACT AND PATENT. EXTERNAL TELE-MONITOR SHOWS CURRENT READING OF NSR, HR ON THE 80'S, NO C/O CARDIAC DISTRESS VOICED. ALL NEEDS ATTENDED WELL. SAFETY MEASURES MAINTAINED: BED IN LOWEST LOCKED POSITION WITH SR-UP X2 AND CALL LIGHT AND BEDSIDE TABLE W/I EASY REACH OF PT. WILL ENDORSE ZELDA TO PAPER CORE MACHINE OPERATOR NURSE.
--- NOTE | 2021-12-18 19:44 | NUR ---
RN OPENING NOTES RECEIVED PT IN BED, AWAKE. AOx4, ABLE TO MAKE NEEDS KNOWN. ON RA AND TOLERATING WELL. NO SOB NOTED. NO S/SX OF RESPIRATORY DISTRESS NOTED. TELE MONITOR DETECTS SINUS RHYTHM OF 86. IV ACCESS IN RAC #18. IV IS INTACT, PATENT, AND FLUSHING WELL. SAFETY PRECAUTIONS IN PLACE: BED IN LOWEST, LOCKED POSITION, BRAKES ON. SIDERAILS UPx2, AND BRAKES ON. TABLE AND CALL LIGHT WITHIN REACH. WILL CONTINUE TO MONITOR.
[2021-12-18 20:00] VITALS: BP 164/94
--- NOTE | 2021-12-18 23:24 | NUR ---
ADMINISTERED MORPHINE PER MD ORDER. VS WNL. WILL CONTINUE TO MONITOR.
[2021-12-19] VITALS: BP 119/54
[2021-12-19] MEDS: ONDANSETRON HCL/PF 4 MG/2 ML VIAL IVP PRN ×2 (01:39→12:37)
[2021-12-19 04:00] VITALS: BP 120/58
[2021-12-19] MEDS: MORPHINE SULFATE INJ 2 MG/ML DISP.SYRIN IV PRN ×4 (06:22→20:20)
--- NOTE | 2021-12-19 06:24 | NUR ---
ADMINISTERED MORPHINE PER MD ORDER. VS WNL. WILL CONTINUE TO MONITOR.
[2021-12-19 06:55] LABS: BASOPHILS # (AUTO) 0.1 K/uL (0.0-0.2); BASOPHILS % (AUTO) 0.9 % (0.0-2.0); HEMATOCRIT 32 % (33-45); HEMOGLOBIN 10.3 g/dL (11.5-14.8); LYMPHOCYTES # (AUTO) 1.4 K/uL (0.8-4.8); LYMPHOCYTES % (AUTO) 16.9 % (20.0-44.0); MEAN CORPUSCULAR HGB CONC 32 g/dl (31.0-36.0); MEAN CORPUSCULAR VOLUME 73 fL (82-100); MONOCYTES # (AUTO) 0.5 K/uL (0.1-1.30); MONOCYTES % (AUTO) 6.4 % (2.0-12.0); NEUTROPHILS # (AUTO) 6.1 K/uL (1.8-8.9); NEUTROPHILS % (AUTO) 74.8 % (43.0-81.0); PLATELET COUNT (AUTO) 266 K/uL (150-450); RED BLOOD CELL COUNT(AUTO) 4.39 MIL/uL (4.0-5.2); WHITE BLOOD COUNT (AUTO) 8.1 K/uL (4.3-11.0)
--- NOTE | 2021-12-19 06:58 | NUR ---
RN CLOSING NOTES RECEIVED PT IN BED, AWAKE. AOx4, ABLE TO MAKE NEEDS KNOWN. ON RA AND TOLERATING WELL. NO SOB NOTED. NO S/SX OF RESPIRATORY DISTRESS NOTED. TELE MONITOR DETECTS SINUS RHYTHM OF 86. IV ACCESS IN L HAND #22. IV IS INTACT, PATENT, AND FLUSHING WELL. ALL NEEDS MET. PT KEPT CLEAN AND DRY. SAFETY PRECAUTIONS IN PLACE: BED IN LOWEST, LOCKED POSITION, BRAKES ON. SIDERAILS UPx2, AND BRAKES ON. TABLE AND CALL LIGHT WITHIN REACH. WILL ENDORSE TO ONCOMING SHIFT FOR ZELDA.
[2021-12-19 07:18] LABS: ALBUMIN 2.9 g/dL (3.4-5.0); BILIRUBIN,TOTAL 0.5 mg/dL (0.2-1.0); CREATININE 1.1 mg/dL (0.6-1.3); MAGNESIUM 2.2 mg/dL (1.8-2.4); PHOSPHORUS 3.9 mg/dL (2.5-4.9); POTASSIUM 3.7 mmol/L (3.5-5.1); TOTAL PROTEIN, SERUM 6.1 g/dL (6.4-8.2)
--- NOTE | 2021-12-19 07:30 | NUR ---
INSECTICIDE MAKER OPENING NOTES RECEIVED PATIENT AWAKE ON BED AND A/O X4. ON ROOM AIR TOLERATING WELL. NO SOB NOTED. NOT IN DISTRESS. WITH NO COMPLAINTS OF PAIN OR DISCOMFORT AT THIS TIME. WITH IV ACCESS AR LEFT HAND G 22 SALINE LOCKED, PATENT AND INTACT. ON TELE MONITOR CURRENTLY READING SINUS RHYTHM AT 89BPM. SAFETY MEASURES IN PLACED. CALL LIGHT WITHIN REACH. BED ON LOWEST LOCKED POSITION, SIDE RAILS UP X2. WILL CONTINUE TO MONITOR.
[2021-12-19 08:00] VITALS: BP 140/99
[2021-12-19] MEDS ORDERED: ASPIRIN EC 81 MG TABLET.DR PO SCH (09:00)
[2021-12-19] MEDS: ASPIRIN EC 81 MG TABLET.DR PO SCH (09:05)
[2021-12-19] MEDS: SPIRONOLACTONE 25 MG TABLET PO SCH (09:05)
[2021-12-19] MEDS: VALSARTAN 80 MG TABLET PO SCH (09:05)
[2021-12-19] MEDS: METOPROLOL SUCCINATE 50 MG TAB.SR.24H PO SCH (09:05)
[2021-12-19] MEDS: FUROSEMIDE 40 MG TABLET PO SCH (09:05)
[2021-12-19 12:00] VITALS: BP 138/95
[2021-12-19 16:00] VITALS: BP 158/110
[2021-12-19] MEDS ORDERED: ALPRAZOLAM 0.25 MG TABLET PO STA (16:32)
[2021-12-19] MEDS: LIDOCAINE 5% (PATCH) 1 EA PATCH TP SCH (17:24)
--- NOTE | 2021-12-19 19:19 | NUR ---
PNEUMATIC DRUM SANDER CLOSING NOTES PATIENT RESTING ON BED AND A/O X4. ON ROOM AIR TOLERATING WELL. NO SOB NOTED. NOT IN DISTRESS. WITH NO COMPLAINTS OF PAIN OR DISCOMFORT AT THIS TIME. WITH IV ACCESS AR LEFT HAND G 22 SALINE LOCKED, PATENT AND INTACT. ON TELE MONITOR CURRENTLY READING SINUS RHYTHM AT 92BPM. DUE MEDS GIVEN. SAFETY MEASURES IN PLACED. CALL LIGHT WITHIN REACH. BED ON LOWEST LOCKED POSITION, SIDE RAILS UP X2. WILL ENDORSE TO NEXT SHIFT FOR ZELDA.
[2021-12-19 20:00] VITALS: BP 117/85
--- NOTE | 2021-12-19 20:05 | NUR ---
RN OPENING NOTES RECEIVED PT IN BED, AWAKE. AOx4, ABLE TO MAKE NEEDS KNOWN. ON RA AND TOLERATING WELL. NO SOB NOTED. NO S/SX OF RESPIRATORY DISTRESS NOTED. TELE MONITOR DETECTS SINUS RHYTHM OF 86. IV ACCESS IN L HAND #22. IV IS INTACT, PATENT, AND FLUSHING WELL. SAFETY PRECAUTIONS IN PLACE: BED IN LOWEST, LOCKED POSITION, BRAKES ON. SIDERAILS UPx2, AND BRAKES ON. TABLE AND CALL LIGHT WITHIN REACH. WILL CONTINUE TO MONITOR.
[2021-12-19] MEDS: TIZANIDINE HCL 4 MG TABLET PO SCH (20:12)
--- NOTE | 2021-12-19 20:20 | NUR ---
ADMINISTERED MORPHINE PER MD ORDER. VS WNL. WILL CONTINUE TO MONITOR.
[2021-12-20] VITALS: BP 97/58
[2021-12-20 04:00] VITALS: BP 107/73
[2021-12-20] MEDS: TIZANIDINE HCL 4 MG TABLET PO SCH (04:29)
--- NOTE | 2021-12-20 07:25 | NUR ---
REPORT GIVEN. PT STABLE.
--- NOTE | 2021-12-20 07:40 | NUR ---
RN OPENING NOTES Patient seen comfortably lying in bed, breathing even and unlabored, no SOB, no apparent distress noted, denies any pain or discomfort at this time, no grimacing. Call light left within reach, safety precautions in place, brakes locked, side rails up X 2, will monitor closely for any changes.
[2021-12-20] MEDS: METOPROLOL SUCCINATE 50 MG TAB.SR.24H PO SCH (09:00)
[2021-12-20] MEDS: VALSARTAN 80 MG TABLET PO SCH (09:00)
[2021-12-20] MEDS: PANTOPRAZOLE 40 MG TABLET.DR PO SCH (10:01)
[2021-12-20] MEDS: FUROSEMIDE 40 MG TABLET PO SCH (10:02)
[2021-12-20] MEDS: SPIRONOLACTONE 25 MG TABLET PO SCH (10:02)
[2021-12-20] MEDS: ASPIRIN EC 81 MG TABLET.DR PO SCH (10:02)
[2021-12-20] MEDS: INSULIN GLARGINE, 100 UNIT/ML CARTRIDGE SQ SCH ×2 (10:05→17:19)
[2021-12-20] MEDS: MORPHINE SULFATE INJ 2 MG/ML DISP.SYRIN IV PRN ×3 (11:50→22:17)
--- NOTE | 2021-12-20 11:50 | NUR ---
Patient has an order for implantable cardioverter defibrillator consent for the procedure obtained from patient, verbalized understanding of the procedure, reminded patient that she cannot have any food or water after midnight, verbalized understanding and gratitude. Consents signed by patient and are filed in patients chart.
[2021-12-20] MEDS: LIDOCAINE 5% (PATCH) 1 EA PATCH TP SCH (17:16)
--- NOTE | 2021-12-20 18:21 | NUR ---
RN CLOSING NOTES Patient lying in bed, no shortness of breath, respirations even and unlabored, no apparent distress noted, pain medication given per MD order as needed when non pharmacological measures ineffective. Kept clean and dry, all needs attended, call light left within reach, safety precautions in place, brakes locked, side rails up X 2, will endorse to next shift for continuity of care.
--- NOTE | 2021-12-20 19:15 | NUR ---
RN NOTES: UPON ENDORSEMENT PATIENT WAS INSIDE THE BATHROOM DOING SPONGE BATH, AMBULATORY, NEEDS STANDBY ASSIST ONLY, A/OX4, CONVERSANT, PLEASANT PERSONALITY, ORIENTED TO UNIT AND STAFF, ON TELE MONITOR SINUS RHYTHM-80'S, FOR URINE COLLECTION FOR TEST, REQUIRED PRIOR TO PROCEDURE, PATIENT IS AWARE, SPECIMEN BOTTLE GIVEN. --FALL, SAFETY AND ASPIRATION PRECAUTION OBSERVED, --PATIENT INSTRUCTED NPO BY 12 MIDNIGHT. SHE UNDERSTAND THE INSTRUCTION. Addendum: 12/21/21 at 0528 by HERVE EDUARDO RN ADDED NOTES: ON O2 INHALATION AT 5L/MIN VIA NC SPO2-98%.
--- NOTE | 2021-12-20 19:55 | NUR ---
RN NOTES: -URINE COLLECTED FOR TEST, LAB-[facility] NOTFIED, P/U AT 195.
[2021-12-20 20:00] VITALS: BP 128/81
--- NOTE | 2021-12-20 22:21 | NUR ---
RN NOTES: SHE AMBULATE A LITTLE AND COMPLAINED SHE HAS SEVERE PAIN, SHE WAS ABLE TO DO SPONGE BATH WITH THE HELP OF TEST AND TURN UP TECHNICIAN, REQUEST FOR HER PAIN MEDICATION, GIVEN PER REQUEST, NON PHARMACOLOGIC INTERVENTION RENDERED, WARM BLANKET PROVIDED AND PLAYED SOFT MUSIC.
[2021-12-21] VITALS: BP_SYST 121; BP_DIAS 64; BP_DIAS 76
[2021-12-21] MEDS: MORPHINE SULFATE INJ 2 MG/ML DISP.SYRIN IV PRN ×4 (03:11→20:42)
--- NOTE | 2021-12-21 03:11 | NUR ---
RN NOTES: AWAKE, CALLING FOR HELP, GRIMACING IN PAIN, SHE SAID 10/10, SHE WANT HER PAIN MEDICATION, REMINDED THAT SHE IS ALREADY ON NPO FROM 12 MN FOR HER PROCEDURE TOMORROW, SHE IS AWARE, KEPT CALL LIGHT WITHIN EASY REACH.
[2021-12-21 04:00] VITALS: BP 127/89
[2021-12-21] MEDS: PANTOPRAZOLE 40 MG TABLET.DR PO SCH (07:30)
--- NOTE | 2021-12-21 07:55 | NUR ---
RN OPENING NOTES PATIENT AWAKE IN BED RESTING, A/O X4. NO S/S OF PAIN NOTED AT THIS TIME. ON ROOM AIR, NO DISTRESS OR SHORTNESS OF BREATH NOTED. IV ACCESS L HAND #22G, INTACT, PATENT AND FLUSHING WELL. FALL AND SAFETY MEASURES IN PLACE, BED ALARM ON, BED IN LOW AND LOCK POSITION, CALL LIGHT AND TABLE WITHIN EASY REACH, SIDE RAILS UP X2. WILL CONTINUE TO MONITOR.
--- NOTE | 2021-12-21 07:56 | NUR ---
RN NOTES: FOR ICD INSERTION THIS MORNING, KEPT NPO,CONSENT SIGNED, PRE-OP CHECKLIST STARTED, PATIENT V/S STABLE, ENDORSED FOR CONTINUITY OF CARE, TIME OF PROCEDURE IS 0900.
[2021-12-21 08:00] VITALS: BP 142/111
[2021-12-21] MEDS ORDERED: IOHEXOL 240MG/ML 50 ML IV ONE ×2 (08:45→08:46)
[2021-12-21] MEDS ORDERED: LIDOCAINE 1% INJ 50 ML MDV IJ ONE (08:45)
--- NOTE | 2021-12-21 08:49 | NUR ---
RN NOTE PATIENT IS NOT IN ROOM, PATIENT WAS TAKEN TO SURGERY.
[2021-12-21] MEDS: SPIRONOLACTONE 25 MG TABLET PO SCH (09:00)
[2021-12-21] MEDS: FUROSEMIDE 40 MG TABLET PO SCH (09:00)
[2021-12-21] MEDS: VALSARTAN 80 MG TABLET PO SCH (09:00)
[2021-12-21] MEDS: METOPROLOL SUCCINATE 50 MG TAB.SR.24H PO SCH (09:00)
[2021-12-21] MEDS: INSULIN GLARGINE, 100 UNIT/ML CARTRIDGE SQ SCH ×2 (09:00→17:26)
[2021-12-21] MEDS: ASPIRIN EC 81 MG TABLET.DR PO SCH (09:00)
[2021-12-21] MEDS ORDERED: FENTANYL PF 100MCG/2ML AMPUL ONE (09:01)
[2021-12-21] MEDS ORDERED: CELLULOSE,OXIDIZED 1 EA PACK MC ONE (09:40)
--- NOTE | 2021-12-21 11:00 | NUR ---
RN NOTE PATIENT IS BACK FROM SURGERY, PATIENT IN ROOM RESTING, V/S STABLE. WILL CONTINUE TO MONITOR.
[2021-12-21] MEDS: LIDOCAINE 5% (PATCH) 1 EA PATCH TP SCH (17:18)
--- NOTE | 2021-12-21 19:15 | NUR ---
CITY WELLNESS COORDINATOR OPENING NOTES PATIENT LAYING AWAKE IN BED. A/O X4. PATIENT WITH REGULAR AND UNLABORED BREATHING, ON ROOM AIR TOLERATED WELL. NO SIGNS AND SYMPTOMS OF DISCOMFORT AT THIS TIME. NO COMPLAINS OF PAIN OR DISCOMFORT AT THIS TIME. IV ACCESS L HAND G #22 SL . IV ACCESS PATENT AND INTACT. SAFETY PRECAUTIONS ENFORCED WITH BED LOCKED AND AT LOWEST POSITION. SIDERAILS UP X2. CALL LIGHT WITHIN REACH AT ALL TIMES. WILL CONTINUE TO MONITOR PATIENT.
--- NOTE | 2021-12-21 19:19 | NUR ---
RN CLOSING NOTES PATIENT AWAKE IN BED RESTING, A/O X4. NO S/S OF PAIN NOTED AT THIS TIME. ON ROOM AIR, NO DISTRESS OR SHORTNESS OF BREATH NOTED. IV ACCESS L HAND #22G, INTACT, PATENT AND FLUSHING WELL. FALL AND SAFETY MEASURES IN PLACE, BED ALARM ON, BED IN LOW AND LOCK POSITION, CALL LIGHT AND TABLE WITHIN EASY REACH, SIDE RAILS UP X2. WILL ENDORSE TO RETREAD OPERATOR.
[2021-12-21] MEDS: ONDANSETRON HCL/PF 4 MG/2 ML VIAL IVP PRN (19:56)
[2021-12-21 20:00] VITALS: BP 160/109
[2021-12-22] VITALS: BP 156/101
[2021-12-22] MEDS: MORPHINE SULFATE INJ 2 MG/ML DISP.SYRIN IV PRN ×3 (03:01→12:22)
[2021-12-22 04:00] VITALS: BP 156/100
--- NOTE | 2021-12-22 04:00 | NUR ---
TEMPLER HEAD NOTES L HAND G # 22 IV REMOVED CATHETER INTACT. IV ACCESS R HAND G #24 INSERTED INTACT AND FLUSHING WELL. WILL CONTINUE TO MONITOR PATIENT.
[2021-12-22] MEDS ORDERED: hydrALAZINE HCL IV 20 MG VIAL IV PRN (04:30)
--- NOTE | 2021-12-22 07:22 | NUR ---
RN OPENING NOTES RECEIVED PATIENT AWAKE IN BED RESTING, A/O X4. NO S/S OF PAIN NOTED AT THIS TIME. PATIENT BREATHING EVENLY AND NONLABORED ON ROOM AIR, NO DISTRESS OR SHORTNESS OF BREATH NOTED. IV ACCESS R HAND #24G, INTACT, PATENT AND FLUSHING WELL. FALL AND SAFETY MEASURES IN PLACE, BED ALARM ON, BED IN LOW AND LOCK POSITION, CALL LIGHT AND TABLE WITHIN EASY REACH, SIDE RAILS UP X2. WILL CONTINUE TO MONITOR.
--- NOTE | 2021-12-22 07:39 | NUR ---
STAFF EDUCATOR CLOSING NOTES PATIENT LAYING STILL AWAKE IN BED. A/O X4. PATIENT WITH REGULAR AND UNLABORED BREATHING, ON ROOM AIR TOLERATED WELL. NO SIGNS AND SYMPTOMS OF DISCOMFORT AT THIS TIME. NO COMPLAINS OF PAIN OR DISCOMFORT AT THIS TIME. IV ACCESS R HAND G #24 SL . IV ACCESS PATENT AND INTACT. SAFETY PRECAUTIONS ENFORCED WITH BED LOCKED AND AT LOWEST POSITION. SIDERAILS UP X2. CALL LIGHT WITHIN REACH AT ALL TIMES. WILL ENDORSE CONTINUITY OF CARE TO DAY SHIFT NURSE.
[2021-12-22 08:00] VITALS: BP 162/109
[2021-12-22] MEDS: SPIRONOLACTONE 25 MG TABLET PO SCH (08:19)
[2021-12-22] MEDS: VALSARTAN 80 MG TABLET PO SCH (08:19)
[2021-12-22] MEDS: ASPIRIN EC 81 MG TABLET.DR PO SCH (08:19)
[2021-12-22] MEDS: PANTOPRAZOLE 40 MG TABLET.DR PO SCH (08:19)
[2021-12-22] MEDS: FUROSEMIDE 40 MG TABLET PO SCH (08:19)
[2021-12-22 08:20] VITALS: BP 150/98
[2021-12-22] MEDS: METOPROLOL SUCCINATE 50 MG TAB.SR.24H PO SCH (08:20)
[2021-12-22] MEDS: INSULIN GLARGINE, 100 UNIT/ML CARTRIDGE SQ SCH (08:22)
[2021-12-22] MEDS ORDERED: SACU1TAB PO (11:42)
[2021-12-22] MEDS ORDERED: EMPA10TA PO (11:42)
--- NOTE | 2021-12-22 12:29 | NUR ---
BATTALION CHIEF NOTE RECEIVED ORDER FOR DISCHARGE, PATIENT IS A/O X4. PATIENT IS BREATHING EVENLY AND NONLABORED ON ROOM AIR. PATIENT DENIES PAIN IR DISCOMFORT AT THIS TIME. PATIENT WAS GIVEN ARM SLING. PATIENT WAS GIVEN DISCHARGE INSTRUCTIONS BOTH VERBALLY AND IN WRITTEN FORM. PATIENT VERBALIZED UNDERSTANDING. PATIENTS IV ACCESS WAS REMOVED, PRESSURE DRESSING APPLIED NO BLEEDING NOTED. PATIENTS BELONGINGS ACCOUNTED FOR, BELONGINGS FORM SIGNED. PATIENT LEFT IN STABLE CONDITION VIA PRIVATE CAR.
== END 2021-12-22 12:30 | disposition home or self-care (01) | DRG 179 ==
LOC: ER 00:03 → TRANSITION 05:20 → TELE 13:32
PROVIDERS: ADMIT Nurse Practitioner Acute Care; ATTEND Nurse Practitioner Acute Care
PROC: 0JH608Z Insertion of Defibrillator Generator into Chest Subcutaneous Tissue and Fascia, Open Approach (ICD-10-PCS; principal; 2021-12-21)
PROC: B2161ZZ Fluoroscopy of Right and Left Heart using Low Osmolar Contrast (ICD-10-PCS; 2021-12-21)
PROC: 02HK3KZ Insertion of Defibrillator Lead into Right Ventricle, Percutaneous Approach (ICD-10-PCS; 2021-12-21)
DX: I42.8 Other cardiomyopathies (principal); I21.A1 Myocardial infarction type 2; I50.43 Acute on chronic combined systolic (congestive) and diastolic (congestive) heart failure; D63.8 Anemia in other chronic diseases classified elsewhere; E11.36 Type 2 diabetes mellitus with diabetic cataract; I11.0 Hypertensive heart disease with heart failure; K21.9 Gastro-esophageal reflux disease without esophagitis; Z20.822 Contact with and (suspected) exposure to COVID-19; I25.10 Atherosclerotic heart disease of native coronary artery without angina pectoris; I25.2 Old myocardial infarction; Z86.16 Personal history of COVID-19; Z98.890 Other specified postprocedural states; E78.5 Hyperlipidemia, unspecified; Z88.8 Allergy status to other drugs, medicaments and biological substances; Z79.4 Long term (current) use of insulin; Z79.84 Long term (current) use of oral hypoglycemic drugs; Z79.899 Other long term (current) drug therapy; R74.01 Elevation of levels of liver transaminase levels; Z90.5 Acquired absence of kidney; Z87.891 Personal history of nicotine dependence; K82.8 Other specified diseases of gallbladder; Z90.721 Acquired absence of ovaries, unilateral
CPT/HCPCS: 36415; 71045-TC; 76700-TC; 80048-TC; 80053-TC; 80061-TC; 80076-TC; 83735-TC; 83880; 84100-TC; 84484-TC; 84702-TC; 84703-TC; 85025-TC; 85378-TC; 85730-TC; 86850-TC; 87081-TC; 93307-TC; A4565; C1722; C9803; G0378; J0690; J1100; J1815; J2270; J2405; J2704; J2765; J3010; J3490; J7030; J7050; Q9966; Q9967

== ENCOUNTER 2021-12-30 19:56 | Inpatient (IN) | payer OTHER ==
[~2021-12-30] VITALS: Ht 160 cm; Wt 104.3 kg
[~2021-12-30 19:56] MED LIST changes: +ALBU8.5H8 IH; +ASPI-1420 PO; +ATOR10TA PO; -Aspirin Ec PO; -DIAZ2TAB3 PO; +EMPA10TA PO; -HYDR25TA4 PO; -MOXI3DRO13 RIGHTEYE; +OXCA150T13 PO; +POTA10TA10 PO; -POTA20TA83 PO; -PRED5DRO16 RIGHTEYE; +SACU1TAB PO; -Valsartan 80MG PO
--- NOTE | 2021-12-30 20:05 | NUR ---
BIBS. SOB X 1PM, DEFIBRILATOR PLACEMENT 12/20/21, NOW COMPLAINING OF CHEST PAIN. PATIENT ALERT AND ORIENTED X4. AMBULATORY SATTING AT 99% RA. PATIENT PLACED IN ROOM 10 ON MONITOR AND POX.
--- NOTE | 2021-12-30 20:20 | NUR ---
ROBOTIC TOY INVENTOR CAT @ BEDSIDE
--- NOTE | 2021-12-30 20:25 | NUR ---
XRAY AT BEDSIDE
[2021-12-30] MEDS ORDERED: ONDANSETRON HCL/PF - ER 4 MG/2 ML VIAL IV ONE (21:00)
[2021-12-30 21:07] LABS: BASOPHILS # (AUTO) 0.1 K/uL (0.0-0.2); BASOPHILS % (AUTO) 0.9 % (0.0-2.0); EOSINOPHILS % (AUTO) 1.1 % (0.0-6.0); HEMATOCRIT 37 % (33-45); HEMOGLOBIN 11.9 g/dL (11.5-14.8); LYMPHOCYTES # (AUTO) 1.6 K/uL (0.8-4.8); LYMPHOCYTES % (AUTO) 17.6 % (20.0-44.0); MEAN CORPUSCULAR HGB CONC 32 g/dl (31.0-36.0); MEAN CORPUSCULAR VOLUME 73 fL (82-100); MONOCYTES # (AUTO) 0.4 K/uL (0.1-1.30); MONOCYTES % (AUTO) 4.6 % (2.0-12.0); NEUTROPHILS % (AUTO) 75.8 % (43.0-81.0); PLATELET COUNT (AUTO) 298 K/uL (150-450); RED BLOOD CELL COUNT(AUTO) 5.12 MIL/uL (4.0-5.2); WHITE BLOOD COUNT (AUTO) 9.2 K/uL (4.3-11.0)
[2021-12-30] MEDS ORDERED: ONDANSETRON HCL/PF 4 MG/2 ML VIAL ONE (21:11)
[2021-12-30 21:29] LABS: ALBUMIN 3.5 g/dL (3.4-5.0); BILIRUBIN,DIRECT 0.1 mg/dL (0.0-0.2); BILIRUBIN,TOTAL 0.4 mg/dL (0.2-1.0); TOTAL PROTEIN, SERUM 7.3 g/dL (6.4-8.2)
[2021-12-30 21:34] LABS: CALCIUM, SERUM 10.3 mg/dL (8.5-10.1); CREATININE 0.9 mg/dL (0.6-1.3); POTASSIUM 3.6 mmol/L (3.5-5.1)
[2021-12-30 21:42] LABS: D-DIMER 1.02 mg/L(FEU (0.17-0.50)
[2021-12-30 21:48] LABS: BAND % (MANUAL) 1 % (0.0-5.0); EOSINOPHILS % (MANUAL) 4 % (0-4); LYMPHOCYTES % (MANUAL) 12 % (16-48); MONOCYTES % (MANUAL) 3 % (0-11.0); NEUTROPHILS % (MANUAL) 80 (42-76)
[2021-12-30] MEDS ORDERED: IOHEXOL-350 100 ML VIAL IV ONE (21:50)
[2021-12-30] MEDS ORDERED: IV NS 0.9% 250 ML IV ONE (21:51)
[2021-12-30] MEDS ORDERED: MORPHINE SULFATE INJ 2 MG/ML DISP.SYRIN IV ONE (22:00)
--- NOTE | 2021-12-30 22:02 | NUR ---
PATIENT GOING TO CT.
[2021-12-30] MEDS ORDERED: MORPHINE SULFATE INJ 4 MG/ML DISP.SYRIN ONE (22:15)
--- NOTE | 2021-12-30 22:35 | NUR ---
COVID SWAB DONE AND SENT TO LAB
[2021-12-30] MEDS ORDERED: NITROGLYCERIN PACKET 1 GM PACKET ONE (22:59)
[2021-12-30] MEDS ORDERED: ASPIRIN 81 MG TAB.CHEW PO ONE (23:00)
[2021-12-30] MEDS ORDERED: NITROGLYCERIN PACKET 1 GM PACKET TD ONE (23:00)
[2021-12-30] MEDS ORDERED: ASPIRIN 81 MG TAB.CHEW ONE (23:00)
--- NOTE | 2021-12-30 23:21 | NUR ---
RE PAGED DR YIN
[2021-12-30] MEDS ORDERED: FUROSEMIDE 20 MG/2 ML VIAL IV ONE (23:30)
[2021-12-30] MEDS ORDERED: FUROSEMIDE 20 MG/2 ML VIAL ONE (23:45)
[2021-12-31] MEDS ORDERED: DEXTROSE 50%-WATER 50 ML DISP.SYRIN IV PRN (00:30)
[2021-12-31] MEDS ORDERED: NITROGLYCERIN 0.4 MG/TAB BOTTLE SL PRN (00:30)
[2021-12-31] MEDS ORDERED: MAG HYDROX/AL HYDROX/SIMETH 30 ML UDC PO PRN (00:30)
[2021-12-31] MEDS ORDERED: ONDANSETRON HCL/PF 4 MG/2 ML VIAL IVP PRN (00:30)
[2021-12-31] MEDS ORDERED: MAGNESIUM HYDROXIDE 30 ML UDC PO PRN (00:30)
[2021-12-31] MEDS ORDERED: INSULIN REGULAR, HUMAN 100 UNIT/ML 3 ML VIAL SQ PRN (00:30)
[2021-12-31] MEDS ORDERED: MORPHINE SULFATE INJ 2 MG/ML DISP.SYRIN IV PRN (00:30)
[2021-12-31] MEDS ORDERED: ACETAMINOPHEN 325 MG TABLET PO PRN (00:30)
[2021-12-31] MEDS ORDERED: ALBUTEROL FS 2.5 MG/3 ML VIAL.NEB NEB PRN (01:00)
[2021-12-31] MEDS ORDERED: HYDROCODONE/APAP 5/325MG TABLET ONE (02:17)
[2021-12-31] MEDS: HYDROCODONE/APAP 5/325MG TABLET PO PRN ×2 (02:20→09:41)
--- NOTE | 2021-12-31 04:44 | NUR ---
bed assignment: 314-2 after shift change
[2021-12-31] MEDS ORDERED: MORPHINE SULFATE INJ 2 MG/ML DISP.SYRIN ONE (05:23)
[2021-12-31] MEDS ORDERED: ONDANSETRON HCL/PF 4 MG/2 ML VIAL ONE (06:41)
--- NOTE | 2021-12-31 07:28 | NUR ---
REPORT GIVEN TO CINDY JAIMES FOR ZELDA
[2021-12-31] MEDS ORDERED: PANTOPRAZOLE 40 MG TABLET.DR PO SCH ×2 (07:30)
[2021-12-31] MEDS ORDERED: BLOOD SUGAR DIAGNOSTIC 1 EACH STRIP IN SCH (07:30)
[2021-12-31] MEDS ORDERED: PANTOPRAZOLE 40 MG TABLET.DR PO ONE (08:05)
[2021-12-31] MEDS ORDERED: METFORMIN 500 MG TABLET PO SCH (09:00)
[2021-12-31] MEDS ORDERED: METOPROLOL SUCCINATE 50 MG TAB.SR.24H PO SCH (09:00)
[2021-12-31] MEDS ORDERED: FUROSEMIDE 40 MG TABLET PO SCH (09:00)
[2021-12-31] MEDS ORDERED: OXCARBAZEPINE 150 MG TABLET PO SCH (09:00)
[2021-12-31] MEDS ORDERED: SPIRONOLACTONE 25 MG TABLET PO SCH (09:00)
[2021-12-31] MEDS ORDERED: Medication Not On Formulary EA (Empagliflozin (Jardiance) 10 MG) PO SCH (09:00)
[2021-12-31] MEDS ORDERED: POTASSIUM CHLORIDE 10 MEQ TABLET.SA PO SCH (09:00)
[2021-12-31] MEDS ORDERED: INSULIN GLARGINE, 100 UNIT/ML CARTRIDGE SQ SCH (09:00)
[2021-12-31] MEDS ORDERED: ASPIRIN EC 81 MG TABLET.DR PO SCH (09:00)
--- NOTE | 2021-12-31 09:00 | NUR ---
REPORT GIVEN TO ERIK WHITE FOR ZELDA
--- NOTE | 2021-12-31 09:04 | NUR ---
RN NOTES PATIENT ARRIVED AT UNIT TO ROOM 314-2 VIA GURNEY, ACCOMPANIED BY 1 ER NURSE.
[2021-12-31 09:45] VITALS: BP 141/93
--- NOTE | 2021-12-31 09:50 | NUR ---
RN NOTES PHOTO OF SKIN ISSUE TAKEN AND PLACED IN THE CHART.
--- NOTE | 2021-12-31 10:07 | NUR ---
RN NOTES PATIENT WAS SEEN BY DR. NAVARRO IN AM; PLAN FOR D/C TO HOME LATER TODAY.
--- NOTE | 2021-12-31 11:53 | NUR ---
RN NOTES DISCHARGED TO HOME TODAY, CLEARED BY CARDIO AND PRIMARY DOCTOR. DISCHARGE INSTRUCTION AND EDUCATION PROVIDED TO PATIENT; DISCHARGE FORM AND BELONGINGS LIST FORM SIGNED BY PATIENT AND ALL BELONGINGS ACCOUNTED FOR. PHOTO OF SKIN ISSUES TAKEN. NAME ARMBAND AND IV LINES REMOVED. PATIENT IS AMBULATORY AND ACCOMPANIED TO THE LOBBY; PICKED UP BY PATIENT'S MOTHER VIA PRIVATE CAR. CHARGE NURSE AND MD AWARE OF DISCHARGE.
[2021-12-31] MEDS ORDERED: ATORVASTATIN 10 MG TABLET PO SCH (22:00)
== END 2021-12-31 11:45 | disposition home or self-care (01) | DRG 199 ==
LOC: ER 19:59 → TRANSITION 23:17 → TELE 12-31 05:13
PROVIDERS: ADMIT Nurse Practitioner Acute Care; ATTEND Nurse Practitioner Acute Care
DX: I16.0 Hypertensive urgency (principal); I21.A1 Myocardial infarction type 2; I42.9 Cardiomyopathy, unspecified; E44.1 Mild protein-calorie malnutrition; D63.8 Anemia in other chronic diseases classified elsewhere; I11.0 Hypertensive heart disease with heart failure; E11.9 Type 2 diabetes mellitus without complications; K21.9 Gastro-esophageal reflux disease without esophagitis; Z20.822 Contact with and (suspected) exposure to COVID-19; E83.52 Hypercalcemia; Z95.810 Presence of automatic (implantable) cardiac defibrillator; Z86.16 Personal history of COVID-19; Z98.890 Other specified postprocedural states; Z90.721 Acquired absence of ovaries, unilateral; Z79.899 Other long term (current) drug therapy; Z90.5 Acquired absence of kidney; Z88.8 Allergy status to other drugs, medicaments and biological substances; Z79.82 Long term (current) use of aspirin; Z79.4 Long term (current) use of insulin; Z79.51 Long term (current) use of inhaled steroids; Z79.84 Long term (current) use of oral hypoglycemic drugs; I25.2 Old myocardial infarction; E78.5 Hyperlipidemia, unspecified; K82.8 Other specified diseases of gallbladder; R93.89 Abnormal findings on diagnostic imaging of other specified body structures; I50.42 Chronic combined systolic (congestive) and diastolic (congestive) heart failure; R74.01 Elevation of levels of liver transaminase levels; I25.10 Atherosclerotic heart disease of native coronary artery without angina pectoris
CPT/HCPCS: 36415; 71045-TC; 80048-TC; 80076-TC; 82962-TC; 83690-TC; 83880; 84484-TC; 85025-TC; 85378-TC; 85730-TC; 87081-TC; G0378; J1815; J1940; J2270; J2405; J7050; Q9967